=== PATIENT | female | born 1965 | race African-American/Black ===

== ENCOUNTER 2018-02-21 13:53 | Inpatient (IN) | payer SELFPAY ==
[2018-02-21] MEDS ORDERED: ASPIRIN 81 MG TABLET, CHEWABLE PO ONE (14:35)
--- NOTE | 2018-02-21 14:47 | ER Document Report ---
ED Cardiac - General Chief Complaint: Chest Pain Stated Complaint: CHEST PAIN Time Seen by Provider: 02/21/18 14:34 Mode of Arrival: Ambulatory Information source: Patient - HPI Patient complains to provider of: Chest pain, Shortness of breath Was the onset of pain: Gradual Is the pain a: New problem Chest pain location: Substernal Quality of pain: Moderate, Heaviness, Pressure Severity now: Moderate Severity at worst: Moderate Pain level currently: 3 Chest pain precipitating factors: Physical Exertion Cardiac risk factors: Diabetes, Hypertension, Dyslipidemia Associated symptoms: Fatigue, Shortness of breath Exacerbated by: Denies Relieved by: Nothing Similar symptoms previously: Yes Recently seen / treated by doctor: Yes Notes: Patient is a 52-year-old female presenting to the emergency room today complaining of chest pain and shortness of breath that has been worsening over the past few days, she recently took a road trip to [place], a few days after arriving there had similar symptoms and was hospitalized in [place], diagnosed with hypertension, congestive heart failure with an ejection fraction of 30% and high cholesterol, she stayed down there for approximately 30 days and drove back to [place] on February 03, she has been taking her medications without any difficulties and feeling okay up until about 4 or 5 days ago when her symptoms developed again, she has chest pressure, shortness of breath, palpitations with a racing heart, while in [place] she was told that she is "having too many PVCs" and was recommended to have an ablation but she thought she would return to [place] before scheduling this, she gets fatigued easily and has dyspnea on exertion, former social smoker, prior to taking her trip down to [place] she had no diagnosed medical problems - Related Data Allergies/Adverse Reactions: No Known Allergies Allergy (Unverified 02/21/18 15:09) Past Medical History - General Information source: Patient - Social History Smoking Status: Former Smoker Family History: Reviewed & Not Pertinent Review of Systems - Review of Systems Constitutional: Malaise EENT: No symptoms reported Cardiovascular: See HPI Respiratory: See HPI Gastrointestinal: No symptoms reported Genitourinary: No symptoms reported Female Genitourinary: No symptoms reported Musculoskeletal: No symptoms reported Skin: No symptoms reported Hematologic/Lymphatic: No symptoms reported Neurological/Psychological: No symptoms reported -: Yes All other systems reviewed and negative Physical Exam - Vital signs Vitals: Resp Pulse Ox 24 H 95 02/21/18 14:15 02/21/18 14:15 Interpretation: Hypertensive, Tachycardic - General General appearance: Appears well, Alert - HEENT Head: Normocephalic, Atraumatic Eyes: Normal Pupils: PERRL - Respiratory Respiratory status: No respiratory distress Chest status: Nontender Breath sounds: Normal Chest palpation: Normal - Cardiovascular Rhythm: Regular Heart sounds: Normal auscultation Murmur: No - Abdominal Inspection: Normal Distension: No distension Bowel sounds: Normal Tenderness: Nontender Organomegaly: No organomegaly - Back Back: Normal, Nontender - Extremities General upper extremity: Normal inspection, Nontender, Normal color, Normal ROM , Normal temperature General lower extremity: Normal inspection, Nontender, Normal color, Normal ROM , Normal temperature, Normal weight bearing. No: Marilee's sign - Neurological Neuro grossly intact: Yes Cognition: Normal Orientation: AAOx4 Teresa Coma Scale Eye Opening: Spontaneous Teresa Coma Scale Verbal: Oriented Teresa Coma Scale Motor: Obeys Commands Teresa Coma Scale Total: 15 Speech: Normal Motor strength normal: LUE, RUE, LLE, RLE Sensory: Normal - Psychological Associated symptoms: Normal affect, Normal mood - Skin Skin Temperature: Warm Skin Moisture: Dry Skin Color: Normal Course - Re-evaluation Re-evalutation: 02/21/18 20:46 Lab and imaging findings discussed with patient at bedside, consistent with congestive heart failure with pleural effusion, VQ scan shows no evidence of ventilation/perfusion mismatch, patient given a dose of Lasix in the emergency department and she has been on oxygen as well which she reports feeling much better with, admission was advised and patient is in agreement, patient discussed with hospitalist, Dr. Elliott who agrees to admit for further evaluation and treatment - Vital Signs Vital signs: Temp Pulse Resp BP Pulse Ox 22 H 191/142 H 95 02/21/18 20:01 02/21/18 20:00 02/21/18 20:01 - Laboratory Result Diagrams: 02/21/18 14:51 02/21/18 14:51 Laboratory results interpreted by me: 02/21/18 02/21/18 02/21/18 14:51 14:51 14:51 MCH 25.8 L RDW 19.6 H Glucose 186 H Magnesium NT-Pro-B Natriuret Pep 5140 H 02/21/18 14:51 MCH RDW Glucose Magnesium 1.4 L NT-Pro-B Natriuret Pep - Diagnostic Test Radiology reviewed: Image reviewed, Reports reviewed - EKG Interpretation by Me EKG shows normal: Sinus rhythm Rate: Tachycardia Voltage: Consistant with LVH Additional EKG results interpreted by me: 02/21/18 14:47 Ventricular bigeminy Discharge - Discharge Clinical Impression: CHF exacerbation Condition: Fair Disposition: ADMITTED INPATIENT Admitting Provider: Hospitalist Unit Admitted: Telemetry Referrals: QIANA PETTIT MD [ACTIVE STAFF] - Follow up as needed
[2018-02-21 15:14] LABS: ABSOLUTE BASOPHILS # (AUTO) 0.1 10^3/uL (0.0-0.2); ABSOLUTE LYMPHOCYTES (AUTO) 1.4 10^3/uL (0.5-4.7); ABSOLUTE MONOCYTES (AUTO) 0.4 10^3/uL (0.1-1.4); ABSOLUTE NEUT (AUTO) 4.9 10^3/uL (1.7-8.2); EOSINOPHILS % (AUTO) 0.6 % (0-6); HEMATOCRIT 39.7 % (36.0-47.0); HEMOGLOBIN 12.8 g/dL (12.0-15.5); LYMPHOCYTES % (AUTO) 20.4 % (13-45); MEAN CORPUSCULAR HEMOGLOBIN 25.8 pg (27.0-33.4); MEAN CORPUSCULAR HGB CONC 32.3 g/dL (32.0-36.0); MEAN CORPUSCULAR VOLUME 80 fl (80-97); MONOCYTES % (AUTO) 5.9 % (3-13); PLATELET COUNT 324 10^3/uL (150-450); RED BLOOD COUNT 4.97 10^6/uL (3.72-5.28); RED CELL DISTRIBUTION WIDTH 19.6 % (11.5-14.0); SEGMENTED NEUTROPHILS % (AUTO) 72.1 % (42-78); TOTAL CELLS COUNTED % (AUTO) 100 %; WHITE BLOOD COUNT 6.8 10^3/uL (4.0-10.5)
--- NOTE | 2018-02-21 15:15 | RADIOLOGY REPORT (SQ) ---
EXAM DESCRIPTION: CHEST SINGLE VIEW COMPLETED DATE/TIME: 02/21/2018 3:07 pm REASON FOR STUDY: cp COMPARISON: None. EXAM PARAMETERS: NUMBER OF VIEWS: One view. TECHNIQUE: Single frontal radiographic view of the chest acquired. RADIATION DOSE: NA LIMITATIONS: None. FINDINGS: LUNGS AND PLEURA: Left lower lobe density with pleural effusion. Right lung clear. MEDIASTINUM AND HILAR STRUCTURES: No masses. Contour normal. HEART AND VASCULAR STRUCTURES: Mild cardiomegaly. BONES: No acute findings. HARDWARE: None in the chest. OTHER: No other significant finding. IMPRESSION: LEFT PLEURAL EFFUSION WITH LEFT LOWER LOBE ATELECTASIS AND/OR INFILTRATE. TECHNICAL DOCUMENTATION: JOB ID: [id number] [employer]- All Rights Reserved Reading location - IP/workstation name: [email or web address]
[2018-02-21 15:34] LABS: ALANINE AMINOTRANSFERASE 30 U/L (9-52); ALBUMIN 3.8 g/dL (3.5-5.0); ALKALINE PHOSPHATASE 97 U/L (38-126); ANION GAP 15 (5-19); ASPARTATE AMINO TRANSFERASE 22 U/L (14-36); BILIRUBIN,DIRECT 0.3 mg/dL (0.0-0.4); BILIRUBIN,TOTAL 0.7 mg/dL (0.2-1.3); BLOOD UREA NITROGEN 16 mg/dL (7-20); CALCIUM 9.8 mg/dL (8.4-10.2); CARBON DIOXIDE 25 mmol/L (22-30); CHLORIDE 100 mmol/L (98-107); CREATINE KINASE 52 U/L (30-135); GLUCOSE 186 mg/dL (75-110); POTASSIUM 4.2 mmol/L (3.6-5.0); SODIUM 140.1 mmol/L (137-145); TOTAL PROTEIN 7.3 g/dL (6.3-8.2)
[2018-02-21 15:46] LABS: CREATINE KINASE MB 1.13 ng/mL (<4.55)
[2018-02-21 15:49] LABS: TROPONIN I 0.064 ng/mL
[2018-02-21] MEDS: MAGNESIUM SULFATE/D5W 1 GM/100 ML RTUPB IV SCH ×2 (19:49→21:09)
--- NOTE | 2018-02-21 20:07 | RADIOLOGY REPORT (SQ) ---
EXAM DESCRIPTION: NM LUNG VENT/PERF SCAN COMPLETED DATE/TIME: 02/21/2018 7:53 pm REASON FOR STUDY: sob COMPARISON: Earlier radiograph RADIONUCLIDE AND DOSE: 4.89 millicuries TC-99m MAA Intravenous 32.2 millicuries TC-99m DTPA Inhaled aerosol TECHNIQUE: Eight views of the lungs acquired post ventilation of DTPA aerosol. Eight matching views of the lungs acquired following injection of MAA. LIMITATIONS: None. FINDINGS: VENTILATION: Centralized heterogeneous distribution of DTPA aerosol during ventilatory pha se. Left basilar areas of photopenia. PERFUSION: Left basilar areas of photopenia.Perfusion images otherwise show normal homogenous activit y. No ventilation-perfusion mismatches. OTHER: No other significant finding. IMPRESSION: Left basilar areas of photopenia consistent with the airspace disease-effusion seen on r adiograph. No ventilation-perfusion mismatches. TECHNICAL DOCUMENTATION: JOB ID: [id number] [place]-72 2010 [employer]- All Rights Reserved Reading location - IP/workstation name: [email or web address]
[2018-02-21] MEDS ORDERED: FUROSEMIDE INJ/PF 40 MG/4 ML SDV IV ONE ×2 (20:17→23:15)
[2018-02-21] MEDS ORDERED: PROMETHAZINE HCL INJ 25 MG/1 ML VIAL IV PRN (22:34)
[2018-02-21] MEDS ORDERED: MAG HYDROX/AL HYDROX/SIMETH SUSP 30 ML UDCUP PO PRN (22:34)
[2018-02-21] MEDS ORDERED: GLUCAGON,HUMAN RECOMB 1 MG INJ IM PRN (22:44)
[2018-02-21] MEDS ORDERED: DEXTROSE 50%-WATER 25 GM/50 ML DISP.SYRIN IV PRN ×2 (22:44)
[2018-02-21] MEDS ORDERED: DEXTROSE 40% GEL 15 GM TUBE PO PRN ×2 (22:44)
[2018-02-21] MEDS ORDERED: CARVEDILOL 12.5 MG TABLET PO ONE ×2 (23:00→23:30)
--- NOTE | 2018-02-21 23:19 | PDOC H&P ---
History of Present Illness Admission Date/PCP: 02/21/18 20:52 None Patient complains of: SOB History of Present Illness: TAMAR ESCOBAR is a 52 year old female sent into the emergency department planing of progressive shortness of breath. On December patient was on vacation in [place], he started feeling sick, she thought was anxiety and she ended up hospitalized about 30 days, came back 01/29. She was diagnosed with diabetes mellitus type 2, hypertension and coronary arterial disease with CHF and ejection fraction of 30%. Medications were given to her and advised her to have a primary care physician here to follow up, her son got sick and she did not get to have any appointment with any primary care. About a week ago her symptoms started again with generalized weakness, progressive shortness of breath, pleuritic chest pain, generalized weakness, she had to frequently stop to breathe, her son was discharged today and she started to come to the emergency department. Denies any lower extremities edema or gain weight. She is very compliant with her medications. In [place], was telling she has too many PVC's and was recommended to have an ablation but she felt [facility] could [facility]. In the ED CTA could not be done as she has very small veins but a VQ scan was negative for PE. 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 In the ED given IV lasix. EKG shows sinus tachycardia with LVH. She was hypertensive with a blood pressure 191/142 initially. Troponins elevation 0.06. Chest x-ray shows left pleural effusion, BNP 5140. Past Medical History Cardiac Medical History: Reports: Congestive Heart Failure - EF 30%, Hypertension Endocrine Medical History: Reports: Diabetes Mellitus Type 2 Past Surgical History Past Surgical History: Reports: None Social History Smoking Status: Former Smoker - Social a smoker, quit 2 years ago Frequency of Alcohol Use: None Drugs: None Past Social History Note: Lives with her daughter, 2 grandkids and her son. Family History Family History: Reviewed & Not Pertinent Family History: Father 74 years old with diabetes mellitus, hypertension, lung cancer in remission. Mother 74 years old with hypertension Parental Family History Reviewed: Yes - As above Children Family History Reviewed: NA Sibling(s) Family History Reviewed.: NA Medication/Allergy Home Medications: Atorvastatin Calcium [Lipitor] 80 mg PO QHS 02/21/18 Glipizide 5 mg PO BID 02/21/18 Metformin HCl [Glucophage 500 mg Tablet] 500 mg PO BID 02/21/18 Sacubitril/Valsartan [Entresto 49 mg-51 mg Tablet] 1 each PO DAILY 02/21/18 Allergies/Adverse Reactions: No Known Allergies Allergy (Unverified 02/21/18 15:09) Review of Systems Review of Systems: As outlined above, others negative Physical Exam Vital Signs: Temp Pulse Resp BP Pulse Ox 19 197/101 H 98 02/21/18 22:01 02/21/18 22:01 02/21/18 22:01 Additional comments: General appearance: Well-developed, well-nourished, alert and cooperative, and appears to be in no acute distress Head: Normocephalic Eyes: PEERL, EOMI, vision is grossly intact. Ears: External auditory canal and tympanic membranes clear, hearing grossly intact. Nose: No nasal discharge. Throat: Oral cavity and pharynx normal. No inflammation, swelling, exudate or lesions. Neck: Neck supple, nontender without lymphadenopathy, masses or thyromegaly. Cardiac: Normal S1 and S2. No S3, S4 or murmurs. Rhythm is regular. There is no peripheral edema, cyanosis or pallor. Extremities are warm and well perfused. Capillary refill is less than 2 seconds. No carotid bruits. Lungs: 2/3 inferior crackles in left lung, no rhonchi, wheezing or diminished breath sounds. Not using accessory muscles. Abdomen: Positive bowel sounds. Soft. Nondistended, nontender. No guarding or rebound. No masses. No hepatosplenomegaly Extremities: No significant deformity or joint abnormality. No edema. Peripheral pulses intact. No varicosities. Neurological: Cranial nerves II through XII grossly intact. Strength and sensation symmetric and intact throughout. Reflexes 2+ throughout. Skin: Skin normal color, texture and turgor with no lesions or eruptions, warm and dry. Psychiatric: The mental examination revealed the patient was oriented to person , place, and time. The patient was able to demonstrate good judgment on recent , without hallucinations, abnormal affect or abnormal behaviors. Results Laboratory Results: 02/21/18 02/21/18 02/21/18 14:51 14:51 14:51 WBC 6.8 RBC 4.97 Hgb 12.8 Hct 39.7 MCV 80 MCH 25.8 L MCHC 32.3 RDW 19.6 H Plt Count 324 Seg Neutrophils % 72.1 Lymphocytes % 20.4 Monocytes % 5.9 Eosinophils % 0.6 Basophils % 1.0 Absolute Neutrophils 4.9 Absolute Lymphocytes 1.4 Absolute Monocytes 0.4 Absolute Eosinophils 0.0 Absolute Basophils 0.1 Sodium 140.1 Potassium 4.2 Chloride 100 Anion Gap 15 BUN 16 Creatinine 0.65 Est GFR ( Amer) > 60 Est GFR (Non-Af Amer) > 60 Glucose 186 H Calcium 9.8 Magnesium Total Bilirubin 0.7 Direct Bilirubin 0.3 AST 22 ALT 30 Alkaline Phosphatase 97 Creatine Kinase 52 CK-MB (CK-2) 1.13 Troponin I 0.064 Total Protein 7.3 Albumin 3.8 TSH 02/21/18 02/21/18 02/21/18 14:51 14:51 20:15 WBC RBC Hgb Hct MCV MCH MCHC RDW Plt Count Seg Neutrophils % Lymphocytes % Monocytes % Eosinophils % Basophils % Absolute Neutrophils Absolute Lymphocytes Absolute Monocytes Absolute Eosinophils Absolute Basophils Sodium Potassium Chloride Anion Gap BUN Creatinine Est GFR ( Amer) Est GFR (Non-Af Amer) Glucose Calcium Magnesium 1.4 L Total Bilirubin Direct Bilirubin AST ALT Alkaline Phosphatase Creatine Kinase CK-MB (CK-2) Troponin I 0.079 Total Protein Albumin TSH 2.48 Impressions: Chest X-Ray 02/21/18 14:36 IMPRESSION: LEFT PLEURAL EFFUSION WITH LEFT LOWER LOBE ATELECTASIS AND/OR INFILTRATE. Lung Scan-VQ NM 02/21/18 18:14 IMPRESSION: Left basilar areas of photopenia consistent with the airspace disease-effusion seen on radiograph. No ventilation-perfusion mismatches. Assessment & Plan - Diagnosis (1) Acute on chronic systolic (congestive) heart failure Is this a current diagnosis for this admission?: Yes Plan: Patient recently diagnosed with congestive heart failure, systolic with an ejection fraction of 30%, unknown if diastolic. Patient was no discharge with Lasix from the hospital in [place], [place]. Will place the patient under telemetry monitoring, Lasix 40 mg IV every 12 hours, I will repeat the echocardiogram to make sure the patient does not have any worsening cardiac function as she has been complaint her medications. Patient has been dieting and having some fluid restriction. I will initiate the patient on Coreg as is unknown why it was discontinued. Cardiac markers 3. Cardiology evaluation. (2) Diabetes mellitus type 2 in nonobese Is this a current diagnosis for this admission?: Yes Plan: Metformin on hold, we can continue her glipizide. Accu-Cheks q. before meals and at bedtime, insulin lispro sliding scale, hypoglycemia protocol. Hemoglobin A1c in the morning. (3) Hypertension Qualifiers: Hypertension type: essential hypertension Qualified Code(s): I10 - Essential (primary) hypertension Is this a current diagnosis for this admission?: Yes Plan: Please see him and tries to, added Coreg. Labetalol IV as needed (4) Hypertensive emergency Is this a current diagnosis for this admission?: Yes Plan: This is multifactorial, and probably her antihypertensive medication has not been correctly adjusted that she did not receive any PCP here. I will continue with her home Entresto and as I said before I added Coreg, IV lopressor as needed. (5) Hypomagnesemia Is this a current diagnosis for this admission?: Yes Plan: Replacement given in the ED. (6) Elevated troponin Is this a current diagnosis for this admission?: Yes Plan: Minimally elevated as 0.06 and 0.079, likely secondary to her hypertensive emergency. Cardiac markers 3 place. - Time Time Spent: 30 to 50 Minutes - Inpatient Certification Based on my medical assessment, after consideration of the patient's comorbidities, presenting symptoms, or acuity I expect that the services needed warrant INPATIENT care.: Yes I certify that my determination is in accordance with my understanding of Medicare's requirements for reasonable and necessary INPATIENT services [42 CFR 412.3e].: Yes Medical Necessity: Risk of Complication if Not Cared For in Hospital
[2018-02-21] MEDS ORDERED: LABETALOL HCL INJ 20 MG/4 ML DISP.SYRIN IV PRN (23:20)
[2018-02-21 23:47] LABS: APPEARANCE,URINE SLIGHTLY-CLOUDY; BILIRUBIN,URINE NEGATIVE (NEGATIVE); COLOR,URINE YELLOW; GLUCOSE, URINE NEGATIVE (NEGATIVE); KETONES,URINE NEGATIVE (NEGATIVE); LEUKOCYTE ESTERASE,URINE NEGATIVE (NEGATIVE); NITRITE,URINE NEGATIVE (NEGATIVE); PROTEIN,URINE 100 mg/dL (NEGATIVE); URINE SPECIFIC GRAVITY 1.014; UROBILINOGEN,URINE NEGATIVE mg/dL (<2.0)
[2018-02-22 00:08] LABS: URINE AMPHETAMINES SCREEN NEGATIVE; URINE BARBITURATES SCREEN NEGATIVE; URINE BENZODIAZEPINES SCREEN NEGATIVE; URINE COCAINE SCREEN NEGATIVE; URINE MARIJUANA (THC) SCREEN NEGATIVE; URINE METHADONE SCREEN NEGATIVE; URINE PHENCYCLIDINE SCREEN NEGATIVE
[2018-02-22 04:46] LABS: ABSOLUTE BASOPHILS # (AUTO) 0.1 10^3/uL (0.0-0.2); ABSOLUTE EOSINOPHILS # (AUTO) 0.1 10^3/uL (0.0-0.6); ABSOLUTE LYMPHOCYTES (AUTO) 1.3 10^3/uL (0.5-4.7); ABSOLUTE MONOCYTES (AUTO) 0.4 10^3/uL (0.1-1.4); ABSOLUTE NEUT (AUTO) 4.3 10^3/uL (1.7-8.2); HEMATOCRIT 36.6 % (36.0-47.0); HEMOGLOBIN 11.7 g/dL (12.0-15.5); LYMPHOCYTES % (AUTO) 21.3 % (13-45); MEAN CORPUSCULAR HEMOGLOBIN 25.6 pg (27.0-33.4); MEAN CORPUSCULAR VOLUME 80 fl (80-97); MONOCYTES % (AUTO) 5.7 % (3-13); PLATELET COUNT 277 10^3/uL (150-450); RED BLOOD COUNT 4.58 10^6/uL (3.72-5.28); RED CELL DISTRIBUTION WIDTH 19.5 % (11.5-14.0); TOTAL CELLS COUNTED % (AUTO) 100 %; WHITE BLOOD COUNT 6.2 10^3/uL (4.0-10.5)
[2018-02-22] MEDS: ACETAMINOPHEN 325 MG TABLET PO PRN ×4 (05:23→20:36)
[2018-02-22 06:34] LABS: ANION GAP 12 (5-19); BLOOD UREA NITROGEN 15 mg/dL (7-20); CARBON DIOXIDE 26 mmol/L (22-30); CHLORIDE 102 mmol/L (98-107); CHOLESTEROL 90.86 mg/dL (0-200); GLUCOSE 182 mg/dL (75-110); PHOSPHORUS 4.9 mg/dL (2.5-4.5); POTASSIUM 3.8 mmol/L (3.6-5.0); SODIUM 140.1 mmol/L (137-145); TRIGLYCERIDES 123 mg/dL (<150)
[2018-02-22 06:45] LABS: DIRECT LDL 43 mg/dL (<100)
--- NOTE | 2018-02-22 07:43 | EKG REPORT ---
SEVERITY:- ABNORMAL ECG - SINUS TACHYCARDIA VENTRICULAR BIGEMINY LEFT ATRIAL ABNORMALITY LVH WITH SECONDARY REPOLARIZATION ABNORMALITY : Confirmed by: Marv Petit MD 22-Feb-2018 07:42:37
[2018-02-22] MEDS: GLIPIZIDE 5 MG TABLET PO SCH ×2 (09:31→17:17)
[2018-02-22] MEDS: FUROSEMIDE INJ/PF 40 MG/4 ML SDV IV SCH ×2 (09:31→21:35)
[2018-02-22] MEDS: CARVEDILOL 12.5 MG TABLET PO SCH ×2 (09:32→21:34)
[2018-02-22] MEDS: ENOXAPARIN SODIUM INJ 40 MG/0.4 ML DISP.SYRIN SUBCUT SCH (09:32)
[2018-02-22] MEDS ORDERED: SACUBITRIL/VALSARTAN 49 MG/51 MG TABLET PO SCH (10:00)
[2018-02-22] MEDS: INSULIN LISPRO 100 UNIT/ML 3 ML VIAL SUBCUT PRN ×2 (12:03→16:35)
--- NOTE | 2018-02-22 18:48 | XCELERA REPORT ---
[address] [address] Transthoracic Echocardiogram Report Name: TAMAR ESCOBAR Age: 52 yrs Gender: Female : 1965 Patient Status: Inpatient Patient Location: [address] [place] [address] Study Date: 02/22/2018 02:46 PM Procedure: A complete two-dimensional transthoracic echocardiogram was performed (2D, M-mode, spectral and color flow Doppler). The study was technically adequate with some images being suboptimal in quality. Reason For Study: worsening chf symptoms Ordering Physician: GERMAINE VU Performed By: Leslie Shelton Interpretation Summary The Ejection Fraction estimate is 20-25% Left ventricular systolic function is severely reduced. There is mild to moderate concentric left ventricular hypertrophy. The left ventricle is mildly dilated. LV diastolic function could not be adequately assessed due to significant valve regurgitation and/or stenosis. There is severe global hypokinesis of the left ventricle. The right ventricle is mildly dilated. The right ventricular systolic function is moderately reduced. The left atrium is moderately dilated. The right atrium is moderately dilated. There is a moderate amount of mitral regurgitation There is no mitral valve stenosis. There is no aortic valve stenosis No aortic regurgitation is present. There is a moderate amount of tricuspid regurgitation There is mild pulmonary hypertension by echo Right ventricular systolic pressure is estimated to be elevated at 30-40mmHg. The aortic root is not well visualized but is probably normal size. The inferior vena cava was not well visualized There is no pericardial effusion. MMode/2D Measurements & Calculations RVDd: 3.7 cm LVIDd: 6.6 cm FS: 6.2 % Ao root diam: 3.0 cm IVSd: 1.3 cm LVIDs: 6.1 cm EDV(Teich): 220.2 ml Ao root area: 7.2 cm2 LVPWd: 1.1 cm ESV(Teich): 190.4 ml EF(Teich): 13.5 % LVOT diam: 1.8 cm LVOT area: 2.5 cm2 Doppler Measurements & Calculations MV E max jeanie: MV dec slope: Ao V2 max: LV V1 max P.0 cm/sec 132.9 cm/sec 4.1 mmHg MV A max jeanie: 787.6 cm/sec2 Ao max PG: LV V1 max: 52.6 cm/sec MV dec time: 7.1 mmHg 101.3 cm/sec MV E/A: 1.9 0.13 sec GANESH(V,D): 1.9 cm2 PA V2 max: PI max jeanie: TR max jeanie: 81.9 cm/sec 145.5 cm/sec 267.7 cm/sec PA max P.7 mmHg PI max P.5 mmHg TR max PG: PI dec slope: 28.7 mmHg 86.5 cm/sec2 Left Ventricle The left ventricle is mildly dilated. There is mild to moderate concentric left ventricular hypertrophy. The Ejection Fraction estimate is 20-25%. Left ventricular systolic function is severely reduced. LV diastolic function could not be adequately assessed due to significant valve regurgitation and/or stenosis. There is severe global hypokinesis of the left ventricle. Right Ventricle The right ventricle is mildly dilated. There is normal right ventricular wall thickness. The right ventricular systolic function is moderately reduced. Atria The right atrium is moderately dilated. The left atrium is moderately dilated. Interarterial septum not well visualized and not well dopplered. Cannot comment on ASD/PFO presence. Mitral Valve The mitral valve leaflets are sclerotic, but show no functional abnormalities. There is no mitral valve stenosis. There is a moderate amount of mitral regurgitation. Aortic Valve The aortic valve is grossly normal. There is no aortic valve stenosis. No aortic regurgitation is present. Tricuspid Valve The tricuspid valve is not well visualized, but is grossly normal. There is no tricuspid stenosis. There is a moderate amount of tricuspid regurgitation. There is mild pulmonary hypertension by echo. Right ventricular systolic pressure is estimated to be elevated at 30-40mmHg. Pulmonic Valve The pulmonic valve is not well visualized. Great Vessels The aortic root is not well visualized but is probably normal size. The inferior vena cava was not well visualized. Effusions There is no pericardial effusion. : GERMAINE VU > [facility]
[2018-02-22] MEDS: ATORVASTATIN CALCIUM 80 MG TABLET PO SCH (21:35)
--- NOTE | 2018-02-22 22:36 | PDOC PROGRESS REPORT ---
Subjective Progress Note for:: 02/22/18 Subjective:: still c/o of HERNANDEZ o/w feeling better. Denies any fever, chills, n/v/d, cp or any urinary symptoms. Reason For Visit: ACUTE ON CHRONIC CHF EXACERBATION Physical Exam Vital Signs: Temp Pulse Resp BP Pulse Ox 98.5 F 37 L 18 140/80 H 96 02/22/18 15:43 02/22/18 15:44 02/22/18 15:44 02/22/18 16:45 02/22/18 15:44 Intake & Output 02/21/18 02/22/18 02/23/18 06:59 06:59 06:59 Intake Total 100 266 Balance 100 266 General appearance: PRESENT: no acute distress, well-developed, well-nourished Head exam: PRESENT: atraumatic, normocephalic Eye exam: PRESENT: conjunctiva pink, EOMI, PERRLA. ABSENT: scleral icterus Ear exam: PRESENT: normal external ear exam Mouth exam: PRESENT: moist, tongue midline Neck exam: ABSENT: carotid bruit, JVD, lymphadenopathy, thyromegaly Respiratory exam: PRESENT: crackles, other - bibasilar crackles. ABSENT: rales , rhonchi, wheezes Cardiovascular exam: PRESENT: RRR. ABSENT: diastolic murmur, rubs, systolic murmur Pulses: PRESENT: normal dorsalis pedis pul Vascular exam: PRESENT: normal capillary refill GI/Abdominal exam: PRESENT: normal bowel sounds, soft. ABSENT: distended, guarding, mass, organolmegaly, rebound, tenderness Rectal exam: PRESENT: deferred Extremities exam: PRESENT: full ROM, +1 edema - BLE. ABSENT: calf tenderness, clubbing, pedal edema Neurological exam: PRESENT: alert, awake, oriented to person, oriented to place , oriented to time, oriented to situation, CN II-XII grossly intact. ABSENT: motor sensory deficit Psychiatric exam: PRESENT: appropriate affect, normal mood. ABSENT: homicidal ideation, suicidal ideation Skin exam: PRESENT: dry, intact, warm. ABSENT: cyanosis, rash Results Laboratory Results: 02/22/18 04:37 02/22/18 04:37 02/21/18 02/22/18 02/22/18 23:15 04:37 04:37 WBC 6.2 RBC 4.58 Hgb 11.7 L Hct 36.6 MCV 80 MCH 25.6 L MCHC 32.0 RDW 19.5 H Plt Count 277 Seg Neutrophils % 70.0 Lymphocytes % 21.3 Monocytes % 5.7 Eosinophils % 2.0 Basophils % 1.0 Absolute Neutrophils 4.3 Absolute Lymphocytes 1.3 Absolute Monocytes 0.4 Absolute Eosinophils 0.1 Absolute Basophils 0.1 Sodium 140.1 Potassium 3.8 Chloride 102 Carbon Dioxide 26 Anion Gap 12 BUN 15 Creatinine 0.70 Est GFR ( Amer) > 60 Est GFR (Non-Af Amer) > 60 Glucose 182 H Calcium 9.0 Phosphorus 4.9 H Magnesium 1.7 Triglycerides 123 Cholesterol 90.86 LDL Cholesterol Direct 43 VLDL Cholesterol 25.0 HDL Cholesterol 28 L Urine Color YELLOW Urine Appearance SLIGHTLY-CLOUDY Urine pH 7.0 Ur Specific [place] 1.014 Urine Protein 100 H Urine Glucose (UA) NEGATIVE Urine Ketones NEGATIVE Urine Blood NEGATIVE Urine Nitrite NEGATIVE Ur Leukocyte Esterase NEGATIVE Urine WBC (Auto) 1 Urine RBC (Auto) 1 02/21/18 02/22/18 02/22/18 22:55 04:37 10:44 Troponin I 0.082 0.082 0.063 Impressions: Chest X-Ray 02/21/18 14:36 IMPRESSION: LEFT PLEURAL EFFUSION WITH LEFT LOWER LOBE ATELECTASIS AND/OR INFILTRATE. Lung Scan-VQ NM 02/21/18 18:14 IMPRESSION: Left basilar areas of photopenia consistent with the airspace disease-effusion seen on radiograph. No ventilation-perfusion mismatches. Assessment & Plan - Diagnosis (1) Acute on chronic systolic (congestive) heart failure Is this a current diagnosis for this admission?: Yes Plan: Recently diagnosed with congestive heart failure, in patient 2D echo shows EF 20 -25, severe LVSF. Denies any history of CAD. Continue telemetry monitoring, Lasix 40 mg IV every 12 hour. Cardiac diet and fluid restriction. Continue WILLIAMS, Coreg. Adjust meds guided by hydrodynamic status. Cardiology Evaluation. (2) CHF exacerbation Qualifiers: Heart failure type: systolic Qualified Code(s): I50.23 - Acute on chronic systolic (congestive) heart failure Is this a current diagnosis for this admission?: Yes Plan: Monitor volume status, continue diuretic. Cardiac diet. (3) Diabetes mellitus type 2 in nonobese Is this a current diagnosis for this admission?: Yes Plan: Hold oral hypoglycemics. Continue Accu-Cheks,sliding scale, hypoglycemia protocol. Hemoglobin A1c 7.4% (4) Elevated troponin Is this a current diagnosis for this admission?: Yes Plan: Minimally elevated as 0.06 and 0.079, likely secondary to her hypertensive emergency. f/u Cardiology Recs. If active chest pain or signs of NV, please do a complete NV w/u (5) Hypertension Qualifiers: Hypertension type: essential hypertension Qualified Code(s): I10 - Essential (primary) hypertension Is this a current diagnosis for this admission?: Yes Plan: on BB, Entresto, Lasix. Adjsut meds as needed. (6) Hypomagnesemia Is this a current diagnosis for this admission?: Yes Plan: Replace as needed.
[2018-02-22 23:32] LABS: CREATINE KINASE MB 0.88 ng/mL (<4.55)
[2018-02-22 23:35] LABS: TROPONIN I 0.048 ng/mL
[2018-02-23] MEDS: ACETAMINOPHEN 325 MG TABLET PO PRN (01:40)
[2018-02-23 05:11] LABS: ABSOLUTE EOSINOPHILS # (AUTO) 0.2 10^3/uL (0.0-0.6); ABSOLUTE LYMPHOCYTES (AUTO) 1.1 10^3/uL (0.5-4.7); ABSOLUTE MONOCYTES (AUTO) 0.4 10^3/uL (0.1-1.4); ABSOLUTE NEUT (AUTO) 3.3 10^3/uL (1.7-8.2); BASOPHILS % (AUTO) 0.8 % (0-2); EOSINOPHILS % (AUTO) 4.1 % (0-6); HEMATOCRIT 36.3 % (36.0-47.0); HEMOGLOBIN 11.4 g/dL (12.0-15.5); LYMPHOCYTES % (AUTO) 21.9 % (13-45); MEAN CORPUSCULAR HEMOGLOBIN 25.3 pg (27.0-33.4); MEAN CORPUSCULAR HGB CONC 31.6 g/dL (32.0-36.0); MEAN CORPUSCULAR VOLUME 80 fl (80-97); PLATELET COUNT 264 10^3/uL (150-450); RED BLOOD COUNT 4.53 10^6/uL (3.72-5.28); RED CELL DISTRIBUTION WIDTH 19.3 % (11.5-14.0); SEGMENTED NEUTROPHILS % (AUTO) 65.2 % (42-78); TOTAL CELLS COUNTED % (AUTO) 100 %
[2018-02-23 05:33] LABS: ALANINE AMINOTRANSFERASE 33 U/L (9-52); ALBUMIN 3.1 g/dL (3.5-5.0); ALKALINE PHOSPHATASE 85 U/L (38-126); ANION GAP 13 (5-19); ASPARTATE AMINO TRANSFERASE 24 U/L (14-36); BILIRUBIN,DIRECT 0.3 mg/dL (0.0-0.4); BILIRUBIN,TOTAL 0.3 mg/dL (0.2-1.3); BLOOD UREA NITROGEN 22 mg/dL (7-20); CALCIUM 8.4 mg/dL (8.4-10.2); CARBON DIOXIDE 29 mmol/L (22-30); CHLORIDE 100 mmol/L (98-107); CREATINE KINASE 43 U/L (30-135); GLUCOSE 184 mg/dL (75-110); POTASSIUM 3.4 mmol/L (3.6-5.0); SODIUM 141.8 mmol/L (137-145); TOTAL PROTEIN 6.1 g/dL (6.3-8.2)
[2018-02-23 05:42] LABS: CREATINE KINASE MB 0.9 ng/mL (<4.55); TROPONIN I 0.052 ng/mL
[2018-02-23] MEDS: FUROSEMIDE INJ/PF 40 MG/4 ML SDV IV SCH ×2 (11:13→21:07)
[2018-02-23] MEDS: CARVEDILOL 12.5 MG TABLET PO SCH ×2 (11:13→21:06)
[2018-02-23] MEDS: INSULIN LISPRO 100 UNIT/ML 3 ML VIAL SUBCUT PRN ×2 (11:15→17:48)
[2018-02-23] MEDS: ENOXAPARIN SODIUM INJ 40 MG/0.4 ML DISP.SYRIN SUBCUT SCH (11:15)
[2018-02-23] MEDS: SACUBITRIL/VALSARTAN 49 MG/51 MG TABLET PO SCH ×2 (11:18→21:07)
--- NOTE | 2018-02-23 11:19 | PDOC CONSULTATION ---
Consultation Consult Date: 02/22/18 Attending physician:: GERMAINE VU Consult reason:: CHF History of Present Illness Admission Date/PCP: 02/21/18 20:52 Patient complains of: Shortness of breath History of Present Illness: TAMAR ESCOBAR is a 52 year old female sent into the emergency department complaining of progressive shortness of breath. On December patient was on vacation in [place], he started feeling sick, she thought was anxiety and she ended up hospitalized about 30 days, came back 01/29. She was diagnosed with diabetes mellitus type 2, hypertension and coronary arterial disease with CHF and ejection fraction of 30%. Medications were given to her and advised her to have a primary care physician here to follow up, her son got sick and she did not get to have any appointment with any primary care. About a week ago her symptoms started again with generalized weakness, progressive shortness of breath, pleuritic chest pain, generalized weakness, she had to frequently stop to breathe, her son was discharged today and she started to come to the emergency department. Denies any lower extremities edema or gain weight. She is very compliant with her medications. In [place], was telling she has too many PVC's and was recommended to have an ablation but she felt she could do it in [place]. In the ED CTA could not be done as she has very small veins but a VQ scan was negative for PE. 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 In the ED given IV lasix. EKG shows sinus tachycardia with LVH. She was hypertensive with a blood pressure 191/142 initially. Troponins elevation 0.06. Chest x-ray shows left pleural effusion, BNP 5140. Past Medical History Cardiac Medical History: Reports: Congestive Heart Failure - EF 30%, Hypertension Endocrine Medical History: Reports: Diabetes Mellitus Type 2 Past Surgical History Past Surgical History: Reports: None Social History Smoking Status: Former Smoker Number of Years Smokin Frequency of Alcohol Use: None Hx Recreational Drug Use: No Drugs: None Hx Prescription Drug Abuse: No - Advance Directive Resuscitation Status: Full Code Family History Family History: Hypertension Parental Family History Reviewed: Yes Children Family History Reviewed: Yes Sibling(s) Family History Reviewed.: Yes Medication/Allergy Home Medications: Atorvastatin Calcium [Lipitor] 80 mg PO QHS 02/21/18 Glipizide 5 mg PO Q12 02/21/18 Metformin HCl [Glucophage 500 mg Tablet] 500 mg PO Q12 02/21/18 Sacubitril/Valsartan [Entresto 49 mg-51 mg Tablet] 1 each PO DAILY 02/21/18 Aspirin [Aspirin EC] 81 mg PO DAILY 02/22/18 Carvedilol [Coreg 3.125 mg Tablet] 3.125 mg PO Q12 02/22/18 Allergies/Adverse Reactions: No Known Allergies Allergy (Unverified 02/21/18 15:09) Physical Exam Vital Signs: Temp Pulse Resp BP Pulse Ox 97.6 F 50 L 20 149/85 H 97 02/22/18 08:50 02/22/18 08:50 02/22/18 08:50 02/22/18 08:50 02/22/18 08:50 Intake & Output 02/21/18 02/22/18 02/23/18 06:59 06:59 06:59 Intake Total 100 Balance 100 Exam: GENERAL: well-nourished and in no acute distress. Alert and oriented x3 HEAD: Atraumatic, normocephalic. EYES: Pupils equal round and reactive to light, extraocular movements intact, sclera anicteric, conjunctiva are normal. ENT: TMs normal, nares patent, oropharynx clear without exudates. Moist mucous membranes. No oral ulcerations or bleeding gums noted NECK: supple without lymphadenopathy. Trachea is central. No cervical or axillary lymphadenopathy noted. Carotids are 2+, JVD 10-12 cm LUNGS: Respiration seems nonlabored, no significant accessory muscle action noted. Bibasilar fine crackles are noted. No wheezes rales or rhonchi noted. Mild bilateral basal dullness noted on percussion. CHEST: Palpation of the chest wall shows no significant chest wall tenderness. 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 ABDOMEN: Soft, no significant tenderness appreciated, normoactive bowel sounds. No guarding, no rebound. No rigidity noted . No masses appreciated. EXTREMITIES: Pedal pulses are 1-2+, no calf tenderness noted. No clubbing or cyanosis. 1-2+ pedal edema noted NEUROLOGICAL: Focused neurological exam showed no significant neurologic deficit. Normal speech, no focal weakness appreciated. PSYCH: Normal mood, normal affect. Judgment and insight within normal limits. SKIN: No significant ecchymosis, skin is noted to be warm. MUSCULOSKELETAL EXAM: No significant acute joint swelling noted. Results Laboratory Results: 02/22/18 04:37 02/22/18 04:37 02/21/18 02/22/18 02/22/18 23:15 04:37 04:37 WBC 6.2 RBC 4.58 Hgb 11.7 L Hct 36.6 MCV 80 MCH 25.6 L MCHC 32.0 RDW 19.5 H Plt Count 277 Seg Neutrophils % 70.0 Lymphocytes % 21.3 Monocytes % 5.7 Eosinophils % 2.0 Basophils % 1.0 Absolute Neutrophils 4.3 Absolute Lymphocytes 1.3 Absolute Monocytes 0.4 Absolute Eosinophils 0.1 Absolute Basophils 0.1 Sodium 140.1 Potassium 3.8 Chloride 102 Carbon Dioxide 26 Anion Gap 12 BUN 15 Creatinine 0.70 Est GFR ( Amer) > 60 Est GFR (Non-Af Amer) > 60 Glucose 182 H Calcium 9.0 Phosphorus 4.9 H Magnesium 1.7 Triglycerides 123 Cholesterol 90.86 LDL Cholesterol Direct 43 VLDL Cholesterol 25.0 HDL Cholesterol 28 L Urine Color YELLOW Urine Appearance SLIGHTLY-CLOUDY Urine pH 7.0 Ur Specific [place] 1.014 Urine Protein 100 H Urine Glucose (UA) NEGATIVE Urine Ketones NEGATIVE Urine Blood NEGATIVE Urine Nitrite NEGATIVE Ur Leukocyte Esterase NEGATIVE Urine WBC (Auto) 1 Urine RBC (Auto) 1 02/21/18 02/22/18 22:55 04:37 Troponin I 0.082 0.082 EKG Comments: Sinus tachycardia, frequent PVCs noted. Nonspecific ST-T wave changes are noted Impressions: Chest X-Ray 02/21/18 14:36 IMPRESSION: LEFT PLEURAL EFFUSION WITH LEFT LOWER LOBE ATELECTASIS AND/OR INFILTRATE. Lung Scan-VQ NM 02/21/18 18:14 IMPRESSION: Left basilar areas of photopenia consistent with the airspace disease-effusion seen on radiograph. No ventilation-perfusion mismatches. Assessment & Plan - Diagnosis (1) Acute on chronic systolic (congestive) heart failure Is this a current diagnosis for this admission?: Yes (2) CHF exacerbation Qualifiers: Heart failure type: systolic Qualified Code(s): I50.23 - Acute on chronic systolic (congestive) heart failure Is this a current diagnosis for this admission?: Yes (3) Diabetes mellitus type 2 in nonobese Is this a current diagnosis for this admission?: Yes (4) Hypertensive emergency Is this a current diagnosis for this admission?: Yes (5) Elevated troponin Is this a current diagnosis for this admission?: Yes - Notes Notes: Acute on chronic systolic heart failure: Patient had recent prolonged hospitalization for 9 days at the hospital in [facility]. Recommend requesting records to see what has been performed there. At this point agree with IV diuretics, optimize therapy of CHF with entresto, carvedilol, spironolactone, hydralazine nitrate combination as needed. 2D echo ordered was reviewed. It shows severely depressed LVEF with moderate mitral regurgitation, moderate tricuspid regurgitation. CHF exacerbation: See plans above. Hypertensive emergency: Patient presented with this. Possibly related to noncompliance. Patient advised compliance with dietary restriction, fluid restriction and also medications. Elevated troponin I: [place] to be related to CHF and severe hypertension. Awaiting previous cardiac evaluation on her previous hospitalization report to be available before scheduling patient for any further evaluation. Patient will need LifeVest to be discharged on on discharge. - Time Time Spent: 30 to 50 Minutes - More than 50% of the time spent coordinating care , discussing management plans with involved caregivers. Management plans discussed with involved personnels. Medical decision making was of moderate to high complexity, patient's has multiple comorbidities. Medications reviewed and adjusted accordingly: Yes
--- NOTE | 2018-02-23 11:24 | PDOC PROGRESS REPORT ---
Subjective Progress Note for:: 02/23/18 Subjective:: Patient seems to be doing better with gradual improvement. Pt is denying any chest arm or neck discomfort. Patient denying any PND, orthopnea. Patient denied any sustained palpitations, dizziness, syncope, near syncope. Patient denying any fever chills. Patient denying any other significant discomfort. Patient is maintaining sinus rhythm. Frequent VPCs are still noted. Review of systems: Rest review of systems negative. Medications: Medications have been reviewed. Reason For Visit: ACUTE ON CHRONIC CHF EXACERBATION Physical Exam Vital Signs: Temp Pulse Resp BP Pulse Ox 97.5 F 92 17 135/99 H 100 02/23/18 07:10 02/23/18 07:10 02/23/18 07:10 02/23/18 07:10 02/23/18 07:10 Intake & Output 02/22/18 02/23/18 02/24/18 06:59 06:59 06:59 Intake Total 100 620 Balance 100 620 Weight 88.5 kg Exam: GENERAL: well-nourished and in no acute distress. Alert and oriented x3 HEAD: Atraumatic, normocephalic. EYES: Pupils equal round and reactive to light, extraocular movements intact, sclera anicteric, conjunctiva are normal. ENT: TMs normal, nares patent, oropharynx clear without exudates. Moist mucous membranes. No oral ulcerations or bleeding gums noted NECK: supple without lymphadenopathy. Trachea is central. No cervical or axillary lymphadenopathy noted. Carotids are 2+, JVD 8-10 cm LUNGS: Respiration seems nonlabored, no significant accessory muscle action noted. Bibasilar fine crackles noted. Left basal dullness noted. CHEST: Palpation of the chest wall shows no significant chest wall tenderness. 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 ABDOMEN: Soft, no significant tenderness appreciated, normoactive bowel sounds. No guarding, no rebound. No rigidity noted . No masses appreciated. EXTREMITIES: Pedal pulses are 1-2+, no calf tenderness noted. No clubbing or cyanosis. 1+ pedal edema noted NEUROLOGICAL: Focused neurological exam showed no significant neurologic deficit. Normal speech, no focal weakness appreciated. PSYCH: Normal mood, normal affect. Judgment and insight within normal limits. SKIN: No significant ecchymosis, skin is noted to be warm. MUSCULOSKELETAL EXAM: No significant acute joint swelling noted. Results Laboratory Results: 02/23/18 04:18 02/23/18 04:18 02/23/18 02/23/18 04:18 04:18 WBC 5.0 RBC 4.53 Hgb 11.4 L Hct 36.3 MCV 80 MCH 25.3 L MCHC 31.6 L RDW 19.3 H Plt Count 264 Seg Neutrophils % 65.2 Lymphocytes % 21.9 Monocytes % 8.0 Eosinophils % 4.1 Basophils % 0.8 Absolute Neutrophils 3.3 Absolute Lymphocytes 1.1 Absolute Monocytes 0.4 Absolute Eosinophils 0.2 Absolute Basophils 0.0 Sodium 141.8 Potassium 3.4 L Chloride 100 Carbon Dioxide 29 Anion Gap 13 BUN 22 H Creatinine 0.68 Est GFR ( Amer) > 60 Est GFR (Non-Af Amer) > 60 Glucose 184 H Calcium 8.4 Magnesium 1.4 L Total Bilirubin 0.3 AST 24 ALT 33 Alkaline Phosphatase 85 Total Protein 6.1 L Albumin 3.1 L 02/21/18 02/22/18 02/22/18 22:55 04:37 10:44 Creatine Kinase CK-MB (CK-2) Troponin I 0.082 0.082 0.063 02/22/18 02/22/18 02/23/18 22:50 22:50 04:18 Creatine Kinase 41 43 CK-MB (CK-2) 0.88 Troponin I 0.048 02/23/18 04:18 Creatine Kinase CK-MB (CK-2) 0.90 Troponin I 0.052 EKG Comments: Shows sinus rhythm with frequent VPCs. Impressions: Chest X-Ray 02/21/18 14:36 IMPRESSION: LEFT PLEURAL EFFUSION WITH LEFT LOWER LOBE ATELECTASIS AND/OR INFILTRATE. Lung Scan-VQ NM 02/21/18 18:14 IMPRESSION: Left basilar areas of photopenia consistent with the airspace disease-effusion seen on radiograph. No ventilation-perfusion mismatches. Assessment & Plan - Diagnosis (1) Acute on chronic systolic (congestive) heart failure Is this a current diagnosis for this admission?: Yes (2) CHF exacerbation Qualifiers: Heart failure type: systolic Qualified Code(s): I50.23 - Acute on chronic systolic (congestive) heart failure Is this a current diagnosis for this admission?: Yes (3) Diabetes mellitus type 2 in nonobese Is this a current diagnosis for this admission?: Yes (4) Hypertensive emergency Is this a current diagnosis for this admission?: Yes (5) Elevated troponin Is this a current diagnosis for this admission?: Yes - Notes Notes: Have ordered for discharge summary and previous cardiac evaluation report from other hospital in [facility]. Have also asked nurse to have a LifeVest application form on the chart. Patient will benefit from CHF education. In the meantime continue with current medications. Medical regimen will be gradually optimized. Have also ordered CT scan without contrast of the chest to evaluate any underlying lung pathology and pleural effusion. Acute on chronic systolic heart failure: Patient had recent prolonged hospitalization for 9 days at the hospital in [facility]. Recommend requesting records to see what has been performed there. At this point agree with IV diuretics, optimize therapy of CHF with entresto, carvedilol, spironolactone, hydralazine nitrate combination as needed. 2D echo ordered was reviewed. It shows severely depressed LVEF with moderate mitral regurgitation, moderate tricuspid regurgitation. CHF exacerbation: See plans above. Hypertensive emergency: Patient presented with this. Possibly related to noncompliance. Patient advised compliance with dietary restriction, fluid restriction and also medications. Elevated troponin I: [place] to be related to CHF and severe hypertension. Awaiting previous cardiac evaluation on her previous hospitalization report to be available before scheduling patient for any further evaluation. Patient will need LifeVest to be discharged on on discharge. - Time Time with patient: Greater than 35 minutes - CODE STATUS was discussed, patient remains full code. Surrogate decision-maker unchanged. Multiple medical problems were addressed. More than 50% of the time spent coordinating care, discussing management plans with involved caregivers. Management plans discussed with involved personnels. Medical decision making was of moderate to high complexity, patient's has multiple comorbidities. Medications reviewed and adjusted accordingly: Yes
[2018-02-23 11:32] LABS: CREATINE KINASE MB 0.81 ng/mL (<4.55)
[2018-02-23 11:35] LABS: TROPONIN I 0.047 ng/mL
--- NOTE | 2018-02-23 13:45 | RADIOLOGY REPORT (SQ) ---
EXAM DESCRIPTION: CT CHEST WITHOUT COMPLETED DATE/TIME: 02/23/2018 1:16 pm REASON FOR STUDY: Pleural effusion COMPARISON: AP chest 02/21/2018 Ventilation-perfusion scan 02/21/2018 TECHNIQUE: CT scan performed of the chest without intravenous contrast. Images reviewed with lung, soft tissue and bone windows. Reconstructed coronal and sagittal MPR images reviewed. All images st ored on PACS. All CT scanners at this facility use dose modulation, iterative reconstruction, and/or weight based d osing when appropriate to reduce radiation dose to as low as reasonably achievable (ALARA). [facility]: Dose Right [facility]: CareDose [facility]: Dose Right [facility]: Teradose 4D [facility]: [employer] RADIATION DOSE: CT Rad equipment meets quality standard of care and radiation dose reduction techniq ues were employed. CTDIvol: 14.2 mGy. DLP: 554 mGy-cm. mGy. LIMITATIONS: No technical limitations. FINDINGS: LUNGS AND PLEURA: Small left pleural effusion is present with adjacent basilar atelectasis . This correlates with chest film 02/21/2018. Remainder of the lungs are clear. No right pleural effusion. No right or left pneumothorax. HILAR AND MEDIASTINAL STRUCTURES: No identified masses or abnormal nodes. No obvious aneurysm. HEART AND VASCULAR STRUCTURES: Moderate cardiomegaly. No gross pericardial effusion UPPER ABDOMEN: No significant findings. Limited exam. THYROID AND OTHER SOFT TISSUES: No masses. No adenopathy. BONES: No significant finding. HARDWARE: None in the chest. OTHER: No other significant findings. IMPRESSION: Small left pleural effusion with adjacent airspace disease likely atelectasis. Moderate cardiomegaly TECHNICAL DOCUMENTATION: JOB ID: [id number] Quality ID # [id number]: Final reports with documentation of one or more dose reduction techniques (e.g., Au tomated exposure control, adjustment of the mA and/or kV according to patient size, use of iterative reconstruction technique) 2010 [employer]- All Rights Reserved Reading location - IP/workstation name: [email or web address]
[2018-02-23] MEDS ORDERED: POTASSIUM CHLORIDE 10 MEQ CAPSULE.ER PO ONE (14:00)
[2018-02-23] MEDS: MAGNESIUM SULFATE/D5W 1 GM/100 ML RTUPB IV SCH ×2 (14:40→16:37)
--- NOTE | 2018-02-23 17:48 | PDOC PROGRESS REPORT ---
Subjective Progress Note for:: 02/23/18 Subjective:: Assume care today. Ms. gomez was admitted for acute CHF exacerbation. No acute event overnight. Patient says that her breathing is much better today but she is still a little short of breath. She denies any chest pain, palpitations or dizziness. Patient denies palpitations despite having PVCs. Reason For Visit: ACUTE ON CHRONIC CHF EXACERBATION Physical Exam Vital Signs: Temp Pulse Resp BP Pulse Ox 97.8 F 95 18 137/104 H 100 02/23/18 14:56 02/23/18 14:56 02/23/18 14:56 02/23/18 14:56 02/23/18 14:56 Intake & Output 02/22/18 02/23/18 02/24/18 06:59 06:59 06:59 Intake Total 100 620 720 Balance 100 620 720 Weight 195 lb 1.745 oz General appearance: PRESENT: no acute distress, well-developed, well-nourished Head exam: PRESENT: atraumatic, normocephalic Eye exam: PRESENT: conjunctiva pink, EOMI, PERRLA. ABSENT: scleral icterus Ear exam: PRESENT: normal external ear exam Neck exam: ABSENT: carotid bruit, JVD, lymphadenopathy, thyromegaly Respiratory exam: PRESENT: rhonchi, other - Decreased breath sounds in the left base. ABSENT: rales, wheezes Cardiovascular exam: PRESENT: RRR, systolic murmur Pulses: PRESENT: normal dorsalis pedis pul GI/Abdominal exam: PRESENT: normal bowel sounds, soft. ABSENT: distended, guarding, mass, organolmegaly, rebound, tenderness Rectal exam: PRESENT: deferred Extremities exam: PRESENT: full ROM. ABSENT: calf tenderness, clubbing, pedal edema Results Laboratory Results: 02/23/18 04:18 02/23/18 04:18 02/23/18 02/23/18 04:18 04:18 WBC 5.0 RBC 4.53 Hgb 11.4 L Hct 36.3 MCV 80 MCH 25.3 L MCHC 31.6 L RDW 19.3 H Plt Count 264 Seg Neutrophils % 65.2 Lymphocytes % 21.9 Monocytes % 8.0 Eosinophils % 4.1 Basophils % 0.8 Absolute Neutrophils 3.3 Absolute Lymphocytes 1.1 Absolute Monocytes 0.4 Absolute Eosinophils 0.2 Absolute Basophils 0.0 Sodium 141.8 Potassium 3.4 L Chloride 100 Carbon Dioxide 29 Anion Gap 13 BUN 22 H Creatinine 0.68 Est GFR ( Amer) > 60 Est GFR (Non-Af Amer) > 60 Glucose 184 H Calcium 8.4 Magnesium 1.4 L Total Bilirubin 0.3 AST 24 ALT 33 Alkaline Phosphatase 85 Total Protein 6.1 L Albumin 3.1 L 02/21/18 02/22/18 02/22/18 22:55 04:37 10:44 Creatine Kinase CK-MB (CK-2) Troponin I 0.082 0.082 0.063 02/22/18 02/22/18 02/23/18 22:50 22:50 04:18 Creatine Kinase 41 43 CK-MB (CK-2) 0.88 Troponin I 0.048 02/23/18 02/23/18 02/23/18 04:18 10:42 10:42 Creatine Kinase 37 CK-MB (CK-2) 0.90 0.81 Troponin I 0.052 0.047 Impressions: Chest X-Ray 02/21/18 14:36 IMPRESSION: LEFT PLEURAL EFFUSION WITH LEFT LOWER LOBE ATELECTASIS AND/OR INFILTRATE. Lung Scan-VQ NM 02/21/18 18:14 IMPRESSION: Left basilar areas of photopenia consistent with the airspace disease-effusion seen on radiograph. No ventilation-perfusion mismatches. Chest CT 02/23/18 00:00 IMPRESSION: Small left pleural effusion with adjacent airspace disease likely atelectasis. Moderate cardiomegaly Assessment & Plan - Diagnosis (1) Acute on chronic systolic (congestive) heart failure Is this a current diagnosis for this admission?: Yes Plan: Improved. Continue Lasix, Coreg. Cardiology following. Noted recent echo which showed an EF of 35%. Cardiology following and has requested for a LifeVest. (2) Diabetes mellitus type 2 in nonobese Is this a current diagnosis for this admission?: Yes Plan: Patient was recently diagnosed with diabetes. Noted sugars. Continue sliding scale coverage for now. (3) Hypokalemia Is this a current diagnosis for this admission?: Yes Plan: Likely diuretic induced. Will replace potassium to keep potassium level of more than 4 due to frequent PVCs. (4) Hypomagnesemia Is this a current diagnosis for this admission?: Yes Plan: Replace magnesium. Go to keep her magnesium level of 2 or more. - Time Time Spent with patient: 15-24 minutes
[2018-02-23] MEDS: ATORVASTATIN CALCIUM 80 MG TABLET PO SCH (21:07)
[2018-02-24 07:14] LABS: ANION GAP 13 (5-19); BLOOD UREA NITROGEN 24 mg/dL (7-20); CALCIUM 8.2 mg/dL (8.4-10.2); CARBON DIOXIDE 28 mmol/L (22-30); CHLORIDE 100 mmol/L (98-107); GLUCOSE 176 mg/dL (75-110); SODIUM 140.8 mmol/L (137-145)
[2018-02-24] MEDS: ENOXAPARIN SODIUM INJ 40 MG/0.4 ML DISP.SYRIN SUBCUT SCH (09:42)
[2018-02-24] MEDS: CLOPIDOGREL BISULFATE 75 MG TABLET PO SCH (09:42)
[2018-02-24] MEDS: SACUBITRIL/VALSARTAN 49 MG/51 MG TABLET PO SCH (09:42)
[2018-02-24] MEDS: FUROSEMIDE INJ/PF 40 MG/4 ML SDV IV SCH ×2 (09:42→22:12)
[2018-02-24] MEDS: CARVEDILOL 12.5 MG TABLET PO SCH ×2 (09:42→22:12)
[2018-02-24] MEDS: INSULIN LISPRO 100 UNIT/ML 3 ML VIAL SUBCUT PRN ×2 (12:14→22:17)
[2018-02-24] MEDS: ACETAMINOPHEN 325 MG TABLET PO PRN (14:58)
--- NOTE | 2018-02-24 18:15 | PDOC PROGRESS REPORT ---
Subjective Progress Note for:: 02/24/18 Subjective:: Ms. gomez was admitted for acute CHF exacerbation. No acute event overnight. She says her breathing has significantly improved and she is close to her baseline. She denies any chest pain, palpitations or dizziness. mechanical planner is helping with getting a lifevest for patient as she does not have health insurance Reason For Visit: ACUTE ON CHRONIC CHF EXACERBATION Physical Exam Vital Signs: Temp Pulse Resp BP Pulse Ox 98.0 F 93 17 141/107 H 99 02/24/18 15:10 02/24/18 15:10 02/24/18 15:10 02/24/18 15:10 02/24/18 15:10 Intake & Output 02/23/18 02/24/18 02/25/18 06:59 06:59 06:59 Intake Total 620 1174 738 Balance 620 1174 738 Weight 195 lb 1.745 oz 213 lb 2.992 oz General appearance: PRESENT: no acute distress, well-developed, well-nourished Head exam: PRESENT: atraumatic, normocephalic Eye exam: PRESENT: conjunctiva pink, EOMI, PERRLA. ABSENT: scleral icterus Ear exam: PRESENT: normal external ear exam Neck exam: ABSENT: carotid bruit, JVD, lymphadenopathy, thyromegaly Respiratory exam: PRESENT: clear to auscultation [place]. ABSENT: rales, rhonchi, wheezes Cardiovascular exam: PRESENT: RRR, systolic murmur Pulses: PRESENT: normal dorsalis pedis pul GI/Abdominal exam: PRESENT: normal bowel sounds, soft. ABSENT: distended, guarding, mass, organolmegaly, rebound, tenderness Rectal exam: PRESENT: deferred Extremities exam: PRESENT: +1 edema Neurological exam: PRESENT: alert, awake, oriented to person, oriented to place , oriented to time, oriented to situation, CN II-XII grossly intact. ABSENT: motor sensory deficit Results Laboratory Results: 02/23/18 04:18 02/24/18 05:24 02/24/18 05:24 Sodium 140.8 Potassium 4.0 Chloride 100 Carbon Dioxide 28 Anion Gap 13 BUN 24 H Creatinine 0.63 Est GFR ( Amer) > 60 Est GFR (Non-Af Amer) > 60 Glucose 176 H Calcium 8.2 L Magnesium 1.8 0802/22/18 02/22/18 22:55 04:37 10:44 Creatine Kinase CK-MB (CK-2) Troponin I 0.082 0.082 0.063 02/22/18 02/22/18 02/23/18 22:50 22:50 04:18 Creatine Kinase 41 43 CK-MB (CK-2) 0.88 Troponin I 0.048 02/23/18 02/23/18 02/23/18 04:18 10:42 10:42 Creatine Kinase 37 CK-MB (CK-2) 0.90 0.81 Troponin I 0.052 0.047 Impressions: Chest X-Ray 02/21/18 14:36 IMPRESSION: LEFT PLEURAL EFFUSION WITH LEFT LOWER LOBE ATELECTASIS AND/OR INFILTRATE. Lung Scan-VQ NM 02/21/18 18:14 IMPRESSION: Left basilar areas of photopenia consistent with the airspace disease-effusion seen on radiograph. No ventilation-perfusion mismatches. Chest CT 02/23/18 00:00 IMPRESSION: Small left pleural effusion with adjacent airspace disease likely atelectasis. Moderate cardiomegaly Assessment & Plan - Diagnosis (1) Acute on chronic systolic (congestive) heart failure Is this a current diagnosis for this admission?: Yes Plan: Improved. Continue Robert Pichardo. Cardiology following. Noted recent echo which showed an EF of 20-25%. Cardiology following and has requested for a LifeVest. Discharge planning and case management have been helping with acquiring a LifeVest for patient as she does not have health insurance. (2) Diabetes mellitus type 2 in nonobese Is this a current diagnosis for this admission?: Yes Plan: Patient was recently diagnosed with diabetes. Sugars at goal. Continue sliding scale coverage for now. (3) Hypokalemia Is this a current diagnosis for this admission?: Yes Plan: Resolved. (4) Hypomagnesemia Is this a current diagnosis for this admission?: Yes Plan: Resolved. - Time Time Spent with patient: 15-24 minutes
--- NOTE | 2018-02-24 18:45 | PDOC PROGRESS REPORT ---
Subjective Progress Note for:: 02/24/18 Subjective:: Patient seems to be doing better with gradual improvement. Pt is denying any chest arm or neck discomfort. Patient denying any PND, orthopnea. Patient denied any sustained palpitations, dizziness, syncope, near syncope. Patient denying any fever chills. Patient denying any other significant discomfort. Patient is maintaining sinus rhythm. Frequent VPCs are still noted. Review of systems: Rest review of systems negative. Medications: Medications have been reviewed. Reason For Visit: ACUTE ON CHRONIC CHF EXACERBATION Physical Exam Vital Signs: Temp Pulse Resp BP Pulse Ox 98.0 F 93 17 141/107 H 99 02/24/18 15:10 02/24/18 15:10 02/24/18 15:10 02/24/18 15:10 02/24/18 15:10 Intake & Output 02/23/18 02/24/18 02/25/18 06:59 06:59 06:59 Intake Total 620 1174 738 Balance 620 1174 738 Weight 88.5 kg 96.7 kg Exam: GENERAL: well-nourished and in no acute distress. Alert and oriented x3 HEAD: Atraumatic, normocephalic. EYES: Pupils equal round and reactive to light, extraocular movements intact, sclera anicteric, conjunctiva are normal. ENT: TMs normal, nares patent, oropharynx clear without exudates. Moist mucous membranes. No oral ulcerations or bleeding gums noted NECK: supple without lymphadenopathy. Trachea is central. No cervical or axillary lymphadenopathy noted. Carotids are 2+, JVD 10-12 cm LUNGS: Respiration seems nonlabored, no significant accessory muscle action noted. Bibasilar fine crackles are noted. No wheezes rales or rhonchi noted. No significant dullness noted on percussion. CHEST: Palpation of the chest wall shows no significant chest wall tenderness. HEART: [place] [employer]PER[employer]INET[employer]ER, No PSH, 1/6 RUTH aortic area, 1/6 tran systolic murmur mitral area, no rubs, no gallops. ABDOMEN: Soft, no significant tenderness appreciated, normoactive bowel sounds. No guarding, no rebound. No rigidity noted . No masses appreciated. EXTREMITIES: Pedal pulses are 1-2+, no calf tenderness noted. No clubbing or cyanosis. 1-2+ pedal edema noted NEUROLOGICAL: Focused neurological exam showed no significant neurologic deficit. Normal speech, no focal weakness appreciated. PSYCH: Normal mood, normal affect. Judgment and insight within normal limits. SKIN: No significant ecchymosis, skin is noted to be warm. MUSCULOSKELETAL EXAM: No significant acute joint swelling noted. Results Laboratory Results: 02/23/18 04:18 02/24/18 05:24 02/24/18 05:24 Sodium 140.8 Potassium 4.0 Chloride 100 Carbon Dioxide 28 Anion Gap 13 BUN 24 H Creatinine 0.63 Est GFR ( Amer) > 60 Est GFR (Non-Af Amer) > 60 Glucose 176 H Calcium 8.2 L Magnesium 1.8 02/21/18 02/22/18 02/22/18 22:55 04:37 10:44 Creatine Kinase CK-MB (CK-2) Troponin I 0.082 0.082 0.063 02/22/18 02/22/18 02/23/18 22:50 22:50 04:18 Creatine Kinase 41 43 CK-MB (CK-2) 0.88 Troponin I 0.048 02/23/18 02/23/18 02/23/18 04:18 10:42 10:42 Creatine Kinase 37 CK-MB (CK-2) 0.90 0.81 Troponin I 0.052 0.047 Impressions: Chest X-Ray 02/21/18 14:36 IMPRESSION: LEFT PLEURAL EFFUSION WITH LEFT LOWER LOBE ATELECTASIS AND/OR INFILTRATE. Lung Scan-VQ NM 02/21/18 18:14 IMPRESSION: Left basilar areas of photopenia consistent with the airspace disease-effusion seen on radiograph. No ventilation-perfusion mismatches. Chest CT 02/23/18 00:00 IMPRESSION: Small left pleural effusion with adjacent airspace disease likely atelectasis. Moderate cardiomegaly Assessment & Plan - Diagnosis (1) Acute on chronic systolic (congestive) heart failure Is this a current diagnosis for this admission?: Yes (2) CHF exacerbation Qualifiers: Heart failure type: systolic Qualified Code(s): I50.23 - Acute on chronic systolic (congestive) heart failure Is this a current diagnosis for this admission?: Yes (3) Diabetes mellitus type 2 in nonobese Is this a current diagnosis for this admission?: Yes (4) Hypertensive emergency Is this a current diagnosis for this admission?: Yes (5) Elevated troponin Is this a current diagnosis for this admission?: Yes - Notes Notes: Information from hospital from [place] reviewed. Patient was diagnosed to have nonischemic cardiomyopathy. Recommend predischarge BNP and chest x-ray PA and lateral. Also recommend predischarge chemistry panel. Patient will benefit from discharge planning consultation so that her medications can be provided. Also patient would need LifeVest to be on prior to discharge. - Time Time with patient: Greater than 35 minutes Medications reviewed and adjusted accordingly: Yes
[2018-02-24] MEDS: SACUBITRIL/VALSARTAN 97 MG/103 MG TABLET PO SCH (22:12)
[2018-02-24] MEDS: ATORVASTATIN CALCIUM 80 MG TABLET PO SCH (22:12)
[2018-02-25 05:27] LABS: ANION GAP 9 (5-19); BLOOD UREA NITROGEN 20 mg/dL (7-20); CALCIUM 8.1 mg/dL (8.4-10.2); CARBON DIOXIDE 34 mmol/L (22-30); CHLORIDE 100 mmol/L (98-107); GLUCOSE 190 mg/dL (75-110); POTASSIUM 3.4 mmol/L (3.6-5.0); SODIUM 142.7 mmol/L (137-145)
[2018-02-25] MEDS: ACETAMINOPHEN 325 MG TABLET PO PRN (09:19)
[2018-02-25] MEDS: FUROSEMIDE INJ/PF 40 MG/4 ML SDV IV SCH ×2 (09:23→22:15)
[2018-02-25] MEDS: CLOPIDOGREL BISULFATE 75 MG TABLET PO SCH (09:23)
[2018-02-25] MEDS: ENOXAPARIN SODIUM INJ 40 MG/0.4 ML DISP.SYRIN SUBCUT SCH (09:23)
[2018-02-25] MEDS: CARVEDILOL 12.5 MG TABLET PO SCH ×2 (09:23→22:15)
[2018-02-25] MEDS: SACUBITRIL/VALSARTAN 97 MG/103 MG TABLET PO SCH ×2 (09:23→22:16)
[2018-02-25] MEDS ORDERED: SACUBITRIL/VALSARTAN 49 MG/51 MG TABLET PO SCH (10:00)
[2018-02-25] MEDS: INSULIN LISPRO 100 UNIT/ML 3 ML VIAL SUBCUT PRN ×3 (12:21→22:50)
--- NOTE | 2018-02-25 13:22 | PDOC PROGRESS REPORT ---
Subjective Progress Note for:: 02/25/18 Subjective:: Ms. gomez was admitted for acute CHF exacerbation. No acute event overnight. She says she is still a little bit short of breath today but has continued to improve. She denies any chest pain, palpitations or dizziness. Pressures have continued to improve overnight. Reason For Visit: ACUTE ON CHRONIC CHF EXACERBATION Physical Exam Vital Signs: Temp Pulse Resp BP Pulse Ox 97.5 F 95 17 153/89 H 100 02/25/18 03:09 02/25/18 07:00 02/25/18 03:09 02/25/18 03:09 02/25/18 03:09 Intake & Output 02/24/18 02/25/18 02/26/18 06:59 06:59 06:59 Intake Total 1174 1444 Balance 1174 1444 Weight 213 lb 2.992 oz 207 lb 3.752 oz General appearance: PRESENT: no acute distress, well-developed, well-nourished Head exam: PRESENT: atraumatic, normocephalic Eye exam: PRESENT: conjunctiva pink, EOMI, PERRLA. ABSENT: scleral icterus Ear exam: PRESENT: normal external ear exam Mouth exam: PRESENT: moist, tongue midline Neck exam: ABSENT: carotid bruit, JVD, lymphadenopathy, thyromegaly Respiratory exam: PRESENT: rales - Occasional rales the left base Cardiovascular exam: PRESENT: RRR, systolic murmur Pulses: PRESENT: normal dorsalis pedis pul GI/Abdominal exam: PRESENT: normal bowel sounds, soft. ABSENT: distended, guarding, mass, organolmegaly, rebound, tenderness Rectal exam: PRESENT: deferred Neurological exam: PRESENT: alert, awake, oriented to person, oriented to place , oriented to time, oriented to situation, CN II-XII grossly intact. ABSENT: motor sensory deficit Results Laboratory Results: 02/23/18 04:18 02/25/18 04:57 02/25/18 04:57 Sodium 142.7 Potassium 3.4 L Chloride 100 Carbon Dioxide 34 H Anion Gap 9 BUN 20 Creatinine 0.57 Est GFR ( Amer) > 60 Est GFR (Non-Af Amer) > 60 Glucose 190 H Calcium 8.1 L 02/21/18 02/22/18 02/22/18 22:55 04:37 10:44 Creatine Kinase CK-MB (CK-2) Troponin I 0.082 0.082 0.063 02/22/18 02/22/18 02/23/18 22:50 22:50 04:18 Creatine Kinase 41 43 CK-MB (CK-2) 0.88 Troponin I 0.048 02/23/18 02/23/18 02/23/18 04:18 10:42 10:42 Creatine Kinase 37 CK-MB (CK-2) 0.90 0.81 Troponin I 0.052 0.047 Impressions: Chest X-Ray 02/21/18 14:36 IMPRESSION: LEFT PLEURAL EFFUSION WITH LEFT LOWER LOBE ATELECTASIS AND/OR INFILTRATE. Lung Scan-VQ NM 02/21/18 18:14 IMPRESSION: Left basilar areas of photopenia consistent with the airspace disease-effusion seen on radiograph. No ventilation-perfusion mismatches. Chest CT 02/23/18 00:00 IMPRESSION: Small left pleural effusion with adjacent airspace disease likely atelectasis. Moderate cardiomegaly Assessment & Plan - Diagnosis (1) Acute on chronic systolic (congestive) heart failure Is this a current diagnosis for this admission?: Yes Plan: Improved. Continue Coreg. [facility] following. Reviewed medical records from [facility]. Patient had a recent stress test which was negative for ischemia. Noted recent echo which showed an EF of 20-25%. Patient likely has an ischemic cardiomyopathy secondary to chronic PVCs with high burden. Patient does have a strong indication for a LifeVest. (2) Diabetes mellitus type 2 in nonobese Is this a current diagnosis for this admission?: Yes Plan: Patient was recently diagnosed with diabetes. Noted sugars which have been trending up. Will add Lantus coverage. Continue sliding scale coverage for now. (3) Hypokalemia Is this a current diagnosis for this admission?: Yes Plan: Likely diuretic induced. Added scheduled oral potassium replacement (4) Hypomagnesemia Is this a current diagnosis for this admission?: Yes Plan: Resolved. - Time Time Spent with patient: 25-34 minutes
[2018-02-25] MEDS: POTASSIUM CHLORIDE 10 MEQ CAPSULE.ER PO SCH (15:17)
[2018-02-25] MEDS: INSULIN GLARGINE,HUM.REC.ANLOG 1,000 UNIT/10 ML UNIT SUBCUT SCH (15:17)
[2018-02-25] MEDS ORDERED: ALPRAZOLAM 0.25 MG TABLET PO PRN (17:36)
--- NOTE | 2018-02-25 20:02 | PDOC PROGRESS REPORT ---
Subjective Progress Note for:: 02/25/18 Subjective:: Patient seems to be doing better with gradual improvement. Pt is denying any chest arm or neck discomfort. Patient denying any PND, orthopnea. Patient denied any sustained palpitations, dizziness, syncope, near syncope. Patient denying any fever chills. Patient denying any other significant discomfort. Patient is maintaining sinus rhythm. Frequent VPCs are still noted. Review of systems: Rest review of systems negative. Medications: Medications have been reviewed. Reason For Visit: ACUTE ON CHRONIC CHF EXACERBATION Physical Exam Vital Signs: Temp Pulse Resp BP Pulse Ox 97.3 F 88 16 140/92 H 100 02/25/18 15:14 02/25/18 15:14 02/25/18 15:14 02/25/18 15:14 02/25/18 15:14 Intake & Output 02/24/18 02/25/18 02/26/18 06:59 06:59 06:59 Intake Total 1174 1444 486 Balance 1174 1444 486 Weight 96.7 kg 94 kg Exam: GENERAL: well-nourished and in no acute distress. Alert and oriented x3 HEAD: Atraumatic, normocephalic. EYES: Pupils equal round and reactive to light, extraocular movements intact, sclera anicteric, conjunctiva are normal. ENT: TMs normal, nares patent, oropharynx clear without exudates. Moist mucous membranes. No oral ulcerations or bleeding gums noted NECK: supple without lymphadenopathy. Trachea is central. No cervical or axillary lymphadenopathy noted. Carotids are 2+, JVD WNL LUNGS: Respiration seems nonlabored, no significant accessory muscle action noted. Few bibasilar crackles are noted. No wheezes rales or rhonchi noted. No significant dullness noted on percussion. CHEST: Palpation of the chest wall shows no significant chest wall tenderness. 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 ABDOMEN: Soft, no significant tenderness appreciated, normoactive bowel sounds. No guarding, no rebound. No rigidity noted . No masses appreciated. EXTREMITIES: Pedal pulses are 1-2+, no calf tenderness noted. No clubbing or cyanosis. Trace to 1+ pedal edema noted NEUROLOGICAL: Focused neurological exam showed no significant neurologic deficit. Normal speech, no focal weakness appreciated. PSYCH: Normal mood, normal affect. Judgment and insight within normal limits. SKIN: No significant ecchymosis, skin is noted to be warm. MUSCULOSKELETAL EXAM: No significant acute joint swelling noted. Results Laboratory Results: 02/23/18 04:18 02/25/18 04:57 02/25/18 04:57 Sodium 142.7 Potassium 3.4 L Chloride 100 Carbon Dioxide 34 H Anion Gap 9 BUN 20 Creatinine 0.57 Est GFR ( Amer) > 60 Est GFR (Non-Af Amer) > 60 Glucose 190 H Calcium 8.1 L 02/21/18 02/22/18 02/22/18 22:55 04:37 10:44 Creatine Kinase CK-MB (CK-2) Troponin I 0.082 0.082 0.063 02/22/18 02/22/18 02/23/18 22:50 22:50 04:18 Creatine Kinase 41 43 CK-MB (CK-2) 0.88 Troponin I 0.048 02/23/18 02/23/18 02/23/18 04:18 10:42 10:42 Creatine Kinase 37 CK-MB (CK-2) 0.90 0.81 Troponin I 0.052 0.047 Impressions: Chest X-Ray 02/21/18 14:36 IMPRESSION: LEFT PLEURAL EFFUSION WITH LEFT LOWER LOBE ATELECTASIS AND/OR INFILTRATE. Lung Scan-VQ NM 02/21/18 18:14 IMPRESSION: Left basilar areas of photopenia consistent with the airspace disease-effusion seen on radiograph. No ventilation-perfusion mismatches. Chest CT 02/23/18 00:00 IMPRESSION: Small left pleural effusion with adjacent airspace disease likely atelectasis. Moderate cardiomegaly Assessment & Plan - Diagnosis (1) Acute on chronic systolic (congestive) heart failure Is this a current diagnosis for this admission?: Yes (2) CHF exacerbation Qualifiers: Heart failure type: systolic Qualified Code(s): I50.23 - Acute on chronic systolic (congestive) heart failure Is this a current diagnosis for this admission?: Yes (3) Diabetes mellitus type 2 in nonobese Is this a current diagnosis for this admission?: Yes (4) Hypertensive emergency Is this a current diagnosis for this admission?: Yes (5) Elevated troponin Is this a current diagnosis for this admission?: Yes - Notes Notes: Patient placed on increased dose of entresto. I am told by patient that the hospital is arranging for LifeVest. Talk with LifeVest rep. In the meantime optimize medical management. Patient will benefit from CHF management instructions Acute on chronic systolic heart failure: Continue patient on diuretics, optimize therapy of CHF with entresto, carvedilol, spironolactone, hydralazine nitrate combination as needed. 2D echo ordered was reviewed with the patient. It shows severely depressed LVEF with moderate mitral regurgitation, moderate tricuspid regurgitation. CHF exacerbation: See plans above. Hypertensive emergency: Patient presented with this. Possibly related to noncompliance. Patient advised compliance with dietary restriction, fluid restriction and also medications. Elevated troponin I: [place] to be related to CHF and severe hypertension. Awaiting previous cardiac evaluation on her previous hospitalization report to be available before scheduling patient for any further evaluation. Patient will need LifeVest to be discharged on on discharge. Significant time spent on arranging this and getting in touch with LifeVest rep. - Time Time with patient: Greater than 35 minutes - LifeVest arrangement in process. Had to spend a lot of time talking to the patient about need of LifeVest, trying to talk with the administration and also rep regarding need for this for the patient prior to discharge. More than 50% of the time spent coordinating care, discussing management plans with involved caregivers. Management plans discussed with involved personnels. Medical decision making was of moderate to high complexity, patient's has multiple comorbidities. Medications reviewed and adjusted accordingly: Yes
[2018-02-25] MEDS: ATORVASTATIN CALCIUM 80 MG TABLET PO SCH (22:15)
[2018-02-26] MEDS: ACETAMINOPHEN 325 MG TABLET PO PRN (03:27)
[2018-02-26] MEDS: INSULIN LISPRO 100 UNIT/ML 3 ML VIAL SUBCUT PRN ×3 (08:09→16:40)
[2018-02-26] MEDS: INSULIN GLARGINE,HUM.REC.ANLOG 1,000 UNIT/10 ML UNIT SUBCUT SCH (10:57)
[2018-02-26] MEDS: ENOXAPARIN SODIUM INJ 40 MG/0.4 ML DISP.SYRIN SUBCUT SCH (10:59)
[2018-02-26] MEDS: POTASSIUM CHLORIDE 10 MEQ CAPSULE.ER PO SCH (11:02)
[2018-02-26] MEDS: CLOPIDOGREL BISULFATE 75 MG TABLET PO SCH (11:03)
[2018-02-26] MEDS: CARVEDILOL 12.5 MG TABLET PO SCH (11:03)
[2018-02-26] MEDS: SACUBITRIL/VALSARTAN 97 MG/103 MG TABLET PO SCH (11:04)
[2018-02-26] MEDS: FUROSEMIDE INJ/PF 40 MG/4 ML SDV IV SCH (11:04)
[2018-02-26 16:59] VITALS: BP 128/95
--- NOTE | 2018-02-26 17:45 | PDOC DISCHARGE SUMMARY ---
General - Admit/Disc Date/PCP Admission Date/Primary Care Provider: 02/21/18 20:52 Discharge Date: 02/26/18 - Discharge Diagnosis (1) Acute on chronic systolic (congestive) heart failure Is this a current diagnosis for this admission?: Yes (2) Diabetes mellitus type 2 in nonobese Is this a current diagnosis for this admission?: Yes (3) Hypokalemia Is this a current diagnosis for this admission?: Yes (4) Hypomagnesemia Is this a current diagnosis for this admission?: Yes - Additional Information Resuscitation Status: Full Code Discharge Diet: Cardiac, Diabetic Discharge Activity: Activity As Tolerated, Weigh Daily Prescriptions: Alprazolam [Xanax 0.25 mg Tablet] 0.25 mg PO QHS #5 tab Carvedilol [Coreg 12.5 mg Tablet] 12.5 mg PO Q12 #60 tablet Clopidogrel Bisulfate [Plavix 75 mg Tablet] 75 mg PO DAILY #30 tablet Furosemide [Lasix 40 mg Tablet] 40 mg PO QAM 30 Days #30 tablet Potassium Chloride [Klor-Con 10 Meq Capsule ER] 20 meq PO DAILY #30 capsule.er Sacubitril/Valsartan [Entresto 97 mg/103 mg Tablet] 1 tab PO Q12 #60 tablet Home Medications: Atorvastatin Calcium [Lipitor] 80 mg PO QHS 02/21/18 Glipizide 5 mg PO Q12 02/21/18 Metformin HCl [Glucophage 500 mg Tablet] 500 mg PO Q12 02/21/18 Acetaminophen [Tylenol 325 mg Tablet] 650 mg PO Q4HP PRN tablet 02/26/18 Alprazolam [Xanax 0.25 mg Tablet] 0.25 mg PO QHS #5 tab 02/26/18 Carvedilol [Coreg 12.5 mg Tablet] 12.5 mg PO Q12 #60 tablet 02/26/18 Clopidogrel Bisulfate [Plavix 75 mg Tablet] 75 mg PO DAILY #30 tablet 02/26/18 Furosemide [Lasix 40 mg Tablet] 40 mg PO QAM 30 Days #30 tablet 02/26/18 Potassium Chloride [Klor-Con 10 Meq Capsule ER] 20 meq PO DAILY #30 capsule.er 02/26/18 Sacubitril/Valsartan [Entresto 97 mg/103 mg Tablet] 1 tab PO Q12 #60 tablet History of Present Illness History of Present Illness: TAMAR ESCOBAR is a 52 year old female sent into the emergency department planing of progressive shortness of breath. On December patient was on vacation in [place], he started feeling sick, she thought was anxiety and she ended up hospitalized about 30 days, came back 01/29. She was diagnosed with diabetes mellitus type 2, hypertension, frequent PVCs, recently diagnosed CHF possible NICM and ejection fraction of 30%. Medications were given to her and advised her to have a primary care physician here to follow up, her son got sick and she did not get to have any appointment with any primary care. About a week ago her symptoms started again with generalized weakness, progressive shortness of breath, pleuritic chest pain, generalized weakness, she had to frequently stop to breathe, her son was discharged today and she started to come to the emergency department. Denies any lower extremities edema or gain weight. In [place], was telling she has too many PVC's and was recommended to have an ablation but she felt she could do it [facility]. In the ED CTA could not be done as she has very small veins but a VQ scan was negative for PE. Patient does not have any small engine technician. In the ED given IV lasix. EKG shows sinus tachycardia with LVH. She was hypertensive with a blood pressure 191/142 initially. Troponins elevation 0.06. Hospital Course Hospital Course: Ms. escobar was admitted for acute CHF exacerbation after presenting with increasing shortness of breath, increasing leg swelling and chest tightness. Patient was recently diagnosed with heart failure in [facility] where she was noted to have multiple PVCs. She had recent stress test in [place] which did not indicate any ischemia. Her heart failure is likely deemed to be secondary to PVC induced/nonischemic cardiomyopathy. Patient was diuresed with IV Lasix. Her respiratory status did improve in the next few days with diuresis. Her medication was also optimized. Her Entresto was also increased. Her blood pressures did improve over the next few days. Patient was initially recommended to go for possible ablation due to persistent PVCs with high burden however her heart rate was also optimally controlled with Coreg. Cardiology was also following the patient. Her echocardiogram here showed severely depressed EF of 20-25%. Patient did have indication to get a LifeVest. Patient does not have medical insurance but fortunately, the hospital was able to acquire one for her. Patient will follow up with cardiology next week. Physical Exam Vital Signs: Temp Pulse Resp BP Pulse Ox 97.6 F 83 16 136/78 H 100 02/26/18 12:01 02/26/18 14:00 02/26/18 12:01 02/26/18 12:01 02/26/18 12:01 Intake & Output 02/25/18 02/26/18 02/27/18 06:59 06:59 06:59 Intake Total 1444 1066 Balance 1444 1066 Weight 207 lb 3.752 oz 208 lb 8.917 oz General appearance: PRESENT: no acute distress, well-developed, well-nourished Head exam: PRESENT: atraumatic, normocephalic Eye exam: PRESENT: conjunctiva pink, EOMI, PERRLA. ABSENT: scleral icterus Ear exam: PRESENT: normal external ear exam Neck exam: ABSENT: carotid bruit, JVD, lymphadenopathy, thyromegaly Respiratory exam: PRESENT: clear to auscultation elida. ABSENT: rales, rhonchi, wheezes Cardiovascular exam: PRESENT: RRR, systolic murmur Pulses: PRESENT: normal dorsalis pedis pul GI/Abdominal exam: PRESENT: normal bowel sounds, soft. ABSENT: distended, guarding, mass, organolmegaly, rebound, tenderness Rectal exam: PRESENT: deferred Neurological exam: PRESENT: alert, awake, oriented to person, oriented to place , oriented to time, oriented to situation, CN II-XII grossly intact. ABSENT: motor sensory deficit Results Laboratory Results: 02/23/18 04:18 02/25/18 04:57 02/21/18 02/22/18 02/22/18 22:55 04:37 10:44 Creatine Kinase CK-MB (CK-2) Troponin I 0.082 0.082 0.063 02/22/18 02/22/18 02/23/18 22:50 22:50 04:18 Creatine Kinase 41 43 CK-MB (CK-2) 0.88 Troponin I 0.048 02/23/18 02/23/18 02/23/18 04:18 10:42 10:42 Creatine Kinase 37 CK-MB (CK-2) 0.90 0.81 Troponin I 0.052 0.047 Impressions: Chest X-Ray 02/21/18 14:36 IMPRESSION: LEFT PLEURAL EFFUSION WITH LEFT LOWER LOBE ATELECTASIS AND/OR INFILTRATE. Lung Scan-VQ NM 02/21/18 18:14 IMPRESSION: Left basilar areas of photopenia consistent with the airspace disease-effusion seen on radiograph. No ventilation-perfusion mismatches. Chest CT 02/23/18 00:00 IMPRESSION: Small left pleural effusion with adjacent airspace disease likely atelectasis. Moderate cardiomegaly Qualifiers - * PATIENT BEING DISCHARGED WITH ANY OF THE FOLLOWING DIAGNOSIS: Heart Failure CA Pt being discharged on Aspirin therapy?: No Reason(s) for not prescribing Aspirin therapy:: Medical Contraindication - On clopidogrel CA Pt being discharged on Statins?: Yes CA Pt discharged ACEI/ARBS?: No Reason(s) for not prescribing ACEI/ARBS:: Medical Contraindication - Patient on Entresto. HF Pt being discharged on ACEI for LVEF less than 40%?: No Reason(s) for not prescribing ACEI:: Medical Contraindication - Patient on Entresto. HF Pt being discharged on ARBS for LVEF less than 40%?: No Reason(s) for not prescribing ARBS:: Medical Contraindication - Patient on Entresto. HF Pt with Afib discharged with Warfarin?: No Reason(s) for not prescribing Warfarin:: Not indicated HF Pt discharged on evidence-based Beta Chely:: Yes
--- NOTE | 2018-02-26 20:00 | PDOC PROGRESS REPORT ---
Subjective Progress Note for:: 02/26/18 Subjective:: Patient seems to be doing better. Patient had LifeVest delivered yesterday and currently wearing LifeVest. Pt is denying any chest arm or neck discomfort. Patient denying any PND, orthopnea. Patient denied any sustained palpitations, dizziness, syncope, near syncope. Patient denying any fever chills. Patient denying any other significant discomfort. Patient is maintaining sinus rhythm. Frequent VPCs are still noted. Review of systems: Rest review of systems negative. Medications: Medications have been reviewed. Reason For Visit: ACUTE ON CHRONIC CHF EXACERBATION Physical Exam Vital Signs: Temp Pulse Resp BP Pulse Ox 97.6 F 83 16 128/95 H 100 02/26/18 16:58 02/26/18 16:58 02/26/18 16:58 02/26/18 16:58 02/26/18 16:58 Intake & Output 02/25/18 02/26/18 02/27/18 06:59 06:59 06:59 Intake Total 1444 1066 Balance 1444 1066 Weight 94 kg 94.6 kg Exam: GENERAL: well-nourished and in no acute distress. Alert and oriented x3 HEAD: Atraumatic, normocephalic. EYES: Pupils equal round and reactive to light, extraocular movements intact, sclera anicteric, conjunctiva are normal. ENT: TMs normal, nares patent, oropharynx clear without exudates. Moist mucous membranes. No oral ulcerations or bleeding gums noted NECK: supple without lymphadenopathy. Trachea is central. No cervical or axillary lymphadenopathy noted. Carotids are 2+, JVD WNL LUNGS: Respiration seems nonlabored, no significant accessory muscle action noted. Breath sounds clear to auscultation bilaterally and equal noted. No wheezes rales or rhonchi noted. No significant dullness noted on percussion. CHEST: Palpation of the chest wall shows no significant chest wall tenderness. HEART: [place] PROPAGATOR, No PSH, 1/6 RUTH aortic area, 1/6 tran systolic murmur mitral area, no rubs, no gallops. ABDOMEN: Soft, no significant tenderness appreciated, normoactive bowel sounds. No guarding, no rebound. No rigidity noted . No masses appreciated. EXTREMITIES: Pedal pulses are 1-2+, no calf tenderness noted. No clubbing or cyanosis. negative pedal edema noted NEUROLOGICAL: Focused neurological exam showed no significant neurologic deficit. Normal speech, no focal weakness appreciated. PSYCH: Normal mood, normal affect. Judgment and insight within normal limits. SKIN: No significant ecchymosis, skin is noted to be warm. MUSCULOSKELETAL EXAM: No significant acute joint swelling noted. Results Laboratory Results: 02/23/18 04:18 02/25/18 04:57 02/21/18 02/22/18 02/22/18 22:55 04:37 10:44 Creatine Kinase CK-MB (CK-2) Troponin I 0.082 0.082 0.063 02/22/18 02/22/18 02/23/18 22:50 22:50 04:18 Creatine Kinase 41 43 CK-MB (CK-2) 0.88 Troponin I 0.048 02/23/18 02/23/18 02/23/18 04:18 10:42 10:42 Creatine Kinase 37 CK-MB (CK-2) 0.90 0.81 Troponin I 0.052 0.047 EKG Comments: Sinus rhythm, occasional VPCs noted. Impressions: Chest X-Ray 02/21/18 14:36 IMPRESSION: LEFT PLEURAL EFFUSION WITH LEFT LOWER LOBE ATELECTASIS AND/OR INFILTRATE. Lung Scan-VQ NM 02/21/18 18:14 IMPRESSION: Left basilar areas of photopenia consistent with the airspace disease-effusion seen on radiograph. No ventilation-perfusion mismatches. Chest CT 02/23/18 00:00 IMPRESSION: Small left pleural effusion with adjacent airspace disease likely atelectasis. Moderate cardiomegaly Assessment & Plan - Diagnosis (1) Acute on chronic systolic (congestive) heart failure Is this a current diagnosis for this admission?: Yes (2) CHF exacerbation Qualifiers: Heart failure type: systolic Qualified Code(s): I50.23 - Acute on chronic systolic (congestive) heart failure Is this a current diagnosis for this admission?: Yes (3) Diabetes mellitus type 2 in nonobese Is this a current diagnosis for this admission?: Yes (4) Hypertensive emergency Is this a current diagnosis for this admission?: Yes (5) Elevated troponin Is this a current diagnosis for this admission?: Yes - Notes Notes: Acute on chronic systolic heart failure: Patient medical management has been optimized greatly. She is currently without any shortness of breath. She has ambulated. Patient has LifeVest on and is ready for discharge. Discussed compliance with medications, compliance with salt and fluid restriction. CHF exacerbation: See plans above. Hypertensive emergency: Patient presented with this. Possibly related to noncompliance. Patient advised compliance with dietary restriction, fluid restriction and also medications. Currently blood pressure has been very satisfactory over last several days. Elevated troponin I: [place] to be related to CHF and severe hypertension. Do not feel any further evaluation is indicated. Patient was informed that should she have recurrent chest pain then heart catheterization may be the next step. Patient understands this. Patient advised close cardiology follow-up. I will be follow patient in my office. - Time Time with patient: Greater than 35 minutes - CODE STATUS was discussed, patient remains full code. Surrogate decision-maker unchanged. Multiple medical problems were addressed. More than 50% of the time spent coordinating care, discussing management plans with involved caregivers. Management plans discussed with involved personnels. Medical decision making was of moderate to high complexity, patient's has multiple comorbidities. Medications reviewed and adjusted accordingly: Yes
[2018-02-27] MEDS ORDERED: INSULIN GLARGINE,HUM.REC.ANLOG 1,000 UNIT/10 ML UNIT SUBCUT SCH (10:00)
== END 2018-02-26 17:30 | disposition home or self-care (01) | DRG 292 ==
LOC: ER 13:53 → EH 20:52 → 4W 02-22 07:43 → EH 02-22 07:46 → 4W 02-22 08:53 → 4S 02-22 17:01
PROVIDERS: ADMIT Internal Medicine; ATTEND Internal Medicine
DX: I50.23 Acute on chronic systolic (congestive) heart failure (principal); I16.1 Hypertensive emergency; E87.6 Hypokalemia; E83.42 Hypomagnesemia; E11.9 Type 2 diabetes mellitus without complications; Z79.84 Long term (current) use of oral hypoglycemic drugs; Z79.02 Long term (current) use of antithrombotics/antiplatelets; Z79.82 Long term (current) use of aspirin; Z79.899 Other long term (current) drug therapy; Z87.891 Personal history of nicotine dependence
CPT/HCPCS: 36415; 71045; 71250; 78582; 80048; 80053; 80061; 80307; 81001; 82550; 82553; 82962; 83036; 83735; 83880; 84100; 84443; 84484; 85025; 93005; 93010; 93306; 96365; 96375; 99285; A9540; A9567; J1650; J1815; J1940; J3475; J3490; Q9969

== ENCOUNTER 2018-06-03 11:20 | Inpatient (IN) | payer SELFPAY ==
[2018-06-03] MEDS ORDERED: ASPIRIN 81 MG TABLET, CHEWABLE PO ONE (11:51)
[2018-06-03 12:24] LABS: HEMATOCRIT 45.1 % (36.0-47.0); HEMOGLOBIN 14.5 g/dL (12.0-15.5); MEAN CORPUSCULAR HEMOGLOBIN 27.8 pg (27.0-33.4); MEAN CORPUSCULAR HGB CONC 32.2 g/dL (32.0-36.0); MEAN CORPUSCULAR VOLUME 87 fl (80-97); PLATELET COUNT 190 10^3/uL (150-450); RED BLOOD COUNT 5.22 10^6/uL (3.72-5.28); RED CELL DISTRIBUTION WIDTH 20.4 % (11.5-14.0); WHITE BLOOD COUNT 5.3 10^3/uL (4.0-10.5)
--- NOTE | 2018-06-03 12:41 | ER Document Report ---
ED Respiratory Problem - General Chief Complaint: Shortness Of Breath Stated Complaint: BLOOD PRESSURE ISSUE, SOB Time Seen by Provider: 06/03/18 11:46 Notes: 82-year-old female presents to the emergency department complaining of several days of shortness of breath. Patient began having shortness of breath several days ago and saw her family doctor yesterday. Noted that she had a little bit of a higher blood pressure and heart rate. The patient continued to have shortness of breath overnight she has a LifeVest on. The patient stated her shortness of breath seems to be worse with laying flat and exertion. She denies any chest pain. Denies significant calf pain or leg swelling. Denies fever chills has had a little bit of a scratchy throat. Some cough and congestion. TRAVEL OUTSIDE OF THE [place] IN LAST 30 DAYS: No - Related Data Allergies/Adverse Reactions: lorazepam [From Ativan] Allergy (Verified 06/03/18 11:23) Past Medical History - Social History Smoking Status: Never Smoker Chew tobacco use (# tins/day): No Frequency of alcohol use: None Drug Abuse: None Family History: Hypertension Patient has suicidal ideation: No Patient has homicidal ideation: No - Past Medical History Cardiac Medical History: Reports: Hx Congestive Heart Failure - EF 30%, Hx Hypertension Endocrine Medical History: Reports: Hx Diabetes Mellitus Type 2 Renal/ Medical History: Denies: Hx Peritoneal Dialysis Review of Systems - Review of Systems Constitutional: denies: Chills, Fever Cardiovascular: Orthopnea, Dyspnea. denies: Chest pain, Heart racing, Edema Respiratory: Short of breath Genitourinary: denies: Dysuria, Hematuria Neurological/Psychological: denies: Headaches -: Yes All other systems reviewed and negative Physical Exam - Vital signs Vitals: Temp Pulse Resp BP Pulse Ox 97.6 F 100 20 166/119 H 99 06/03/18 11:25 06/03/18 11:25 06/03/18 11:25 06/03/18 11:25 06/03/18 11:25 - Notes Notes: GENERAL_APPEARANCE: well_nourished, alert, cooperative VITALS: reviewed, see vital signs table. HEAD: no_swelling\tenderness on the head. EYES: PERRL, EOMI, conjunctiva_clear. NOSE: no_nasal_discharge. MOUTH: (-)decreased moisture. THROAT: no_tonsilar_inflammation, no_airway_obstruction. no_lymphadenopathy NECK: supple, no_neck_tenderness, (-)thyromegaly. BACK: no_back_tenderness. CHEST_WALL: no_chest_tenderness. LUNGS: no_wheezing, basilar crackles, no_rhonchi, (-)accessory muscle use, good air exchange bilateral. HEART: normal_rate, normal_rhythm, normal_S1, normal_S2, (-)S3, (-)S4, no_ murmur, no_rub. ABDOMEN: normal_BS, soft, no_abd_tenderness, (-)guarding, (-)rebound, no_ organomegaly, no_abd_masses. EXTREMITIES: good pulses in all_extremities, no_swelling\tenderness in the extremities, trace_edema. SKIN: warm, dry, good_color, no_rash. MENTAL_STATUS: speech_clear, oriented_X_3, normal_affect, responds_ appropriately to questions. NEURO: Neg Motor or Sensory Deficits on exam, CN 2-12 intact, DTR 2+ symmetric x 4, No cerbellar signs Course - Re-evaluation Re-evalutation: 06/03/18 15:18 Patient history had a viral URI but it seems to have exacerbated her CHF. Patient does have crackles on exam. BNP over 10,000 and chest x-ray does show some cephalization. We will give 80 of Lasix. She only takes 80 once a day and will give an inch of Nitropaste. Blood pressure is elevated. The patient still has not quite felt better after treatment I will speak with the hospital service to bring her in continue diuresing her. - Vital Signs Vital signs: Temp Pulse Resp BP Pulse Ox 97.6 F 100 20 166/119 H 100 06/03/18 11:25 06/03/18 11:25 06/03/18 11:25 06/03/18 11:25 06/03/18 12:28 - Laboratory Result Diagrams: 06/03/18 12:13 06/03/18 12:13 Laboratory results interpreted by me: 06/03/18 06/03/18 06/03/18 12:13 12:13 12:13 RDW 20.4 H Sodium 145.2 H Chloride 97 L Carbon Dioxide 33 H BUN 26 H Glucose 298 H Alkaline Phosphatase 175 H NT-Pro-B Natriuret Pep 92222 H - Diagnostic Test Radiology reviewed: Reports reviewed Radiology results interpreted by me: 06/03/18 15:15 Chest X-Ray 06/03/18 11:51 IMPRESSION: Cardiomegaly with probable retrocardiac atelectasis. No definite acute airspace opacity. - EKG Interpretation by Me EKG shows normal: Sinus rhythm Rhythm: NSR [place]/QRS: Left axis deviation P Waves: Other - LVH When compared to previous EKG there are: No significant change Discharge - Discharge Clinical Impression: Acute on chronic systolic (congestive) heart failure Condition: Fair Disposition: ADMITTED INPATIENT Admitting Provider: Hospitalist Unit Admitted: Telemetry Referrals: VIKTOR NGUYEN MD [Primary Care Provider] - Follow up as needed
[2018-06-03 12:45] LABS: ALANINE AMINOTRANSFERASE 40 U/L (9-52); ALBUMIN 3.7 g/dL (3.5-5.0); ALKALINE PHOSPHATASE 175 U/L (38-126); ANION GAP 15 (5-19); ASPARTATE AMINO TRANSFERASE 32 U/L (14-36); BILIRUBIN,DIRECT 0.3 mg/dL (0.0-0.4); BILIRUBIN,TOTAL 0.7 mg/dL (0.2-1.3); BLOOD UREA NITROGEN 26 mg/dL (7-20); CALCIUM 9.4 mg/dL (8.4-10.2); CARBON DIOXIDE 33 mmol/L (22-30); CHLORIDE 97 mmol/L (98-107); CREATINE KINASE 41 U/L (30-135); GLUCOSE 298 mg/dL (75-110); POTASSIUM 4.1 mmol/L (3.6-5.0); SODIUM 145.2 mmol/L (137-145); TOTAL PROTEIN 6.8 g/dL (6.3-8.2)
[2018-06-03 12:57] LABS: CREATINE KINASE MB 0.85 ng/mL (<4.55)
[2018-06-03 12:58] LABS: TROPONIN I 0.043 ng/mL
[2018-06-03 13:01] LABS: ABSOLUTE LYMPHOCYTES# (MANUAL) 1.1 10^3/uL (0.5-4.7); ABSOLUTE MONOCYTES # (MANUAL) 0.4 10^3/uL (0.1-1.4); ABSOLUTE NEUTROPHILS# (MANUAL) 3.7 10^3/uL (1.7-8.2); BASOPHILS % (MANUAL) 1 % (0-2); EOSINOPHILS % (MANUAL) 2 % (0-6); LYMPHOCYTES % (MANUAL) 18 % (13-45); MONOCYTES % (MANUAL) 7 % (3-13); SEGMENTED NEUTROPHILS % (MAN) 69 % (42-78); TOTAL CELLS COUNTED 100
[2018-06-03 13:02] LABS: HYPOCHROMASIA SLIGHT; PLATELET CLUMPS PRESENT; POLYCHROMASIA SLIGHT; TOXIC GRANULATION SLIGHT
[2018-06-03 13:11] LABS: A TYPE INFLUENZA AG NEGATIVE (NEGATIVE); B INFLUENZA AG NEGATIVE (NEGATIVE)
--- NOTE | 2018-06-03 13:18 | RADIOLOGY REPORT (SQ) ---
EXAM DESCRIPTION: CHEST SINGLE VIEW COMPLETED DATE/TIME: 06/03/2018 1:09 pm REASON FOR STUDY: sob COMPARISON: None. EXAM PARAMETERS: NUMBER OF VIEWS: One view. TECHNIQUE: Single frontal radiographic view of the chest acquired. RADIATION DOSE: NA LIMITATIONS: None. FINDINGS: LUNGS AND PLEURA: Probable retrocardiac atelectasis. No other opacities, masses or pneum othorax. No pleural effusion. MEDIASTINUM AND HILAR STRUCTURES: No masses. Contour normal. HEART AND VASCULAR STRUCTURES: Cardiomegaly. BONES: No acute findings. HARDWARE: None in the chest. OTHER: Life vest is applied about the chest. IMPRESSION: Cardiomegaly with probable retrocardiac atelectasis. No definite acute airspace opacity . TECHNICAL DOCUMENTATION: JOB ID: [id number] [employer]- All Rights Reserved Reading location - IP/workstation name: [email or web address]
[2018-06-03] MEDS ORDERED: NITROGLYCERIN 2% OINTMENT 1 GM PACKET TP ONE (15:14)
[2018-06-03] MEDS ORDERED: FUROSEMIDE INJ/PF 100 MG/10 ML SDV IV ONE (15:14)
[2018-06-03] MEDS ORDERED: ZOLPIDEM TARTRATE 5 MG TABLET PO PRN (18:47)
[2018-06-03] MEDS ORDERED: IPRATROPIUM/ALBUTEROL 0.5-2.5 MG/3 ML AMPUL NEB SCH (19:00)
--- NOTE | 2018-06-03 19:00 | PDOC H&P ---
History of Present Illness Admission Date/PCP: 06/03/18 15:28 VIKTOR NGUYEN MD Patient complains of: Shortness of breath. History of Present Illness: TAMAR ESCOBAR is a 52 year old female history of caused by nonischemic cardiomyopathy, hypertension, diabetes, anxiety. She was hospitalized here at [facility] on January 2018 for CHF exacerbation. In December 2017 she was on a vacation in [place] she was feeling anxious and sick and ended up in hospital where she stayed in hospital for 30 days and she was told that she has nonischemic cardiomyopathy and echo at that time showed ejection fraction of less than 30%. Also told that she was having too many PVCs and an ablation was recommended but she refused. This is a she is stating that a week ago she was around some people who had cold and since then she has been feeling generalized achiness and fatigue and also having a nonproductive cough. Yesterday she went to see her PCP and was started on carvedilol and her Lasix was increased and was sent back home. She said today she was having worsening shortness of breath and lower extremity edema and came to ED. She still complaining of nonproductive cough, chills but denies any nausea, vomiting, diarrhea, constipation or any urinary symptoms. Past Medical History Cardiac Medical History: Reports: Congestive Heart Failure - EF 30%, Hypertension Endocrine Medical History: Reports: Diabetes Mellitus Type 2 Social History Smoking Status: Never Smoker Frequency of Alcohol Use: None Hx Recreational Drug Use: No Drugs: None Hx Prescription Drug Abuse: No Family History Family History: Hypertension Parental Family History Reviewed: Yes Children Family History Reviewed: Yes Sibling(s) Family History Reviewed.: Yes Medication/Allergy Home Medications: Alprazolam [Xanax 0.25 mg Tablet] 0.25 mg PO Q8HP PRN 06/03/18 Atorvastatin Calcium [Lipitor 80 mg Tablet] 80 mg PO QHS 06/03/18 Clopidogrel Bisulfate [Plavix 75 mg Tablet] 75 mg PO DAILY 06/03/18 Furosemide [Lasix 40 mg Tablet] 40 mg PO QPM 06/03/18 Furosemide [Lasix 80 mg Tablet] 80 mg PO QAM 06/03/18 Glipizide [Glocotrol 5 Mg Tablet] 5 mg PO BIDACBS 06/03/18 Insulin Glargine,Hum.rec.anlog [Lantus Insulin Inj 300 Unit/3 ml Pen] 15 unit SUBCUT QHS 06/03/18 Metformin HCl [Glucophage 500 mg Tablet] 500 mg PO BIDACBS 06/03/18 Potassium Chloride [Klor-Con 10 Meq Capsule ER] 10 meq PO DAILY 06/03/18 Valsartan [Diovan 40 mg Tablet] 40 mg PO Q12 06/03/18 Allergies/Adverse Reactions: lorazepam [From Ativan] Allergy (Verified 06/03/18 11:23) Review of Systems Review of Systems: Per HPI. Constitutional: PRESENT: as per HPI Physical Exam Vital Signs: Temp Pulse Resp BP Pulse Ox 97.6 F 100 22 H 161/114 H 87 L 06/03/18 11:25 06/03/18 11:25 06/03/18 17:00 06/03/18 16:04 06/03/18 14:00 General appearance: PRESENT: no acute distress, well-developed, well-nourished Neck exam: ABSENT: carotid bruit, JVD, lymphadenopathy, thyromegaly Respiratory exam: PRESENT: clear to auscultation elida. ABSENT: rales, rhonchi, wheezes Cardiovascular exam: PRESENT: RRR. ABSENT: diastolic murmur, rubs, systolic murmur GI/Abdominal exam: PRESENT: normal bowel sounds, soft. ABSENT: distended, guarding, mass, organolmegaly, rebound, tenderness Neurological exam: PRESENT: alert, awake, oriented to person, oriented to place , oriented to time, oriented to situation, CN II-XII grossly intact. ABSENT: motor sensory deficit Results Laboratory Results: 06/03/18 16:00 Troponin I 0.049 Impressions: Chest X-Ray 06/03/18 11:51 IMPRESSION: Cardiomegaly with probable retrocardiac atelectasis. No definite acute airspace opacity. Assessment & Plan - Diagnosis (1) CHF exacerbation Qualifiers: Heart failure type: combined systolic and diastolic Is this a current diagnosis for this admission?: Yes Plan: Likely caused by acute bronchitis. Combined systolic and diastolic heart failure. Caused by nonischemic cardiomyopathy diagnosed in 12/2017 in [place]. 02/18/2018. 2D echo EGA 2024. Severely reduced left ventricular systolic and diastolic dysfunction. 06/03/2018. BNP 17899. Troponin 0 0.043 and 0.049. Third troponin pending IV Lasix, strict in and out, volume restriction, hold beta-blockers, restart once appropriate. Telemetry Continue statins, aspirin, WILLIAMS.. Will order echo. (2) Acute bronchitis Is this a current diagnosis for this admission?: Yes Plan: Start on azithromycin. Sputum and blood culture. We will also check for influenza type a and B. (3) Diabetes mellitus type 2 in nonobese Is this a current diagnosis for this admission?: Yes Plan: Controlled. Long-acting insulin, short acting pre-meal and sliding scale. Accu -Chek. Diabetic diet. Adjust dosage as needed. (4) Hypertension Qualifiers: Hypertension type: essential hypertension Qualified Code(s): I10 - Essential (primary) hypertension Is this a current diagnosis for this admission?: Yes Plan: Uncontrolled. Restart home meds. Hold beta-blockers. Adjust meds as needed.
[2018-06-03] MEDS ORDERED: GUAIFENESIN/D-METHORPHAN (200-20 MG) SYRUP 10 ML PO SCH (19:15)
[2018-06-03] MEDS ORDERED: METOPROLOL TARTRATE PF/INJ 5 MG/5 ML SDV IV ONE (20:45)
[2018-06-03] MEDS ORDERED: INSULIN GLARGINE,HUM.REC.ANLOG 300 UNIT/3 ML INSULN.PEN SUBCUT SCH (22:00)
[2018-06-03] MEDS: AZITHROMYCIN 250 MG TABLET PO SCH (22:29)
[2018-06-03] MEDS: FAMOTIDINE 20 MG TABLET PO SCH (22:29)
[2018-06-03] MEDS: ENOXAPARIN SODIUM INJ 40 MG/0.4 ML DISP.SYRIN SUBCUT SCH (22:30)
[2018-06-03] MEDS: ALPRAZOLAM 0.25 MG TABLET PO PRN (22:30)
[2018-06-03] MEDS: FUROSEMIDE INJ/PF 40 MG/4 ML SDV IV SCH (22:31)
--- NOTE | 2018-06-03 22:38 | EKG REPORT ---
SEVERITY:- ABNORMAL ECG - SINUS RHYTHM LEFT ATRIAL ABNORMALITY LVH WITH SECONDARY REPOLARIZATION ABNORMALITY : Confirmed by: Golden Dumont 03-Jun-2018 22:37:06
[2018-06-03] MEDS ORDERED: INSULIN GLARGINE,HUM.REC.ANLOG 300 UNIT/3 ML INSULN.PEN SUBCUT ONE (23:40)
[2018-06-04] MEDS: HYDRALAZINE HCL INJ/PF 20 MG/1 ML SDV IV PRN ×4 (00:34→23:57)
[2018-06-04] MEDS: ONDANSETRON HCL INJ/PF 4 MG/2 ML SDV IV PRN (01:45)
[2018-06-04] MEDS ORDERED: ARIPIPRAZOLE 5 MG TABLET PO ONE (01:45)
[2018-06-04] MEDS ORDERED: DEXTROSE 50%-WATER SYRINGE 25 GM/50 ML DOSE IV PRN (03:17)
[2018-06-04] MEDS ORDERED: DEXTROSE 50%-WATER SYRINGE 12.5 GM/25 ML DOSE IV PRN (03:17)
[2018-06-04] MEDS ORDERED: DEXTROSE 40% GEL 15 GM TUBE X 2 PO PRN (03:17)
[2018-06-04] MEDS ORDERED: DEXTROSE 40% GEL 15 GM TUBE PO PRN ×3 (03:17→09:45)
[2018-06-04] MEDS ORDERED: GLUCAGON,HUMAN RECOMB 1 MG INJ IM PRN ×2 (03:17→09:45)
[2018-06-04 05:30] LABS: URINE AMPHETAMINES SCREEN NEGATIVE; URINE BARBITURATES SCREEN NEGATIVE; URINE COCAINE SCREEN NEGATIVE; URINE MARIJUANA (THC) SCREEN NEGATIVE; URINE METHADONE SCREEN NEGATIVE; URINE PHENCYCLIDINE SCREEN NEGATIVE
[2018-06-04 05:33] LABS: URINE BENZODIAZEPINES SCREEN UNCONFIRMED POSITIVE
[2018-06-04] MEDS: INSULIN LISPRO 100 UNIT/ML 3 ML VIAL SUBCUT PRN ×3 (07:53→16:37)
[2018-06-04] MEDS: ACETAMINOPHEN 325 MG TABLET PO PRN ×2 (07:56→19:58)
[2018-06-04] MEDS: FAMOTIDINE 20 MG TABLET PO SCH ×2 (09:08→21:45)
[2018-06-04] MEDS: ENOXAPARIN SODIUM INJ 40 MG/0.4 ML DISP.SYRIN SUBCUT SCH (09:08)
[2018-06-04] MEDS: CLOPIDOGREL BISULFATE 75 MG TABLET PO SCH (09:08)
[2018-06-04] MEDS: ALPRAZOLAM 0.25 MG TABLET PO PRN ×2 (09:08→16:37)
[2018-06-04] MEDS: DOCUSATE SODIUM 100 MG/10 ML UDC PO SCH ×2 (09:08→19:00)
[2018-06-04] MEDS: FUROSEMIDE INJ/PF 40 MG/4 ML SDV IV SCH ×2 (09:08→21:45)
[2018-06-04] MEDS ORDERED: DEXTROSE 50%-WATER 25 GM/50 ML DISP.SYRIN IV PRN ×2 (09:45)
[2018-06-04] MEDS ORDERED: VALSARTAN 40 MG TABLET PO SCH (10:00)
[2018-06-04 10:17] LABS: ABSOLUTE EOSINOPHILS # (AUTO) 0.1 10^3/uL (0.0-0.6); ABSOLUTE LYMPHOCYTES (AUTO) 0.8 10^3/uL (0.5-4.7); ABSOLUTE MONOCYTES (AUTO) 0.3 10^3/uL (0.1-1.4); ABSOLUTE NEUT (AUTO) 5.3 10^3/uL (1.7-8.2); BASOPHILS % (AUTO) 0.5 % (0-2); EOSINOPHILS % (AUTO) 0.9 % (0-6); HEMOGLOBIN 13.8 g/dL (12.0-15.5); LYMPHOCYTES % (AUTO) 11.9 % (13-45); MEAN CORPUSCULAR HEMOGLOBIN 27.6 pg (27.0-33.4); MEAN CORPUSCULAR HGB CONC 32.1 g/dL (32.0-36.0); MEAN CORPUSCULAR VOLUME 86 fl (80-97); MONOCYTES % (AUTO) 4.3 % (3-13); PLATELET COUNT 204 10^3/uL (150-450); RED BLOOD COUNT 5.01 10^6/uL (3.72-5.28); RED CELL DISTRIBUTION WIDTH 20.3 % (11.5-14.0); SEGMENTED NEUTROPHILS % (AUTO) 82.4 % (42-78); TOTAL CELLS COUNTED % (AUTO) 100 %; WHITE BLOOD COUNT 6.5 10^3/uL (4.0-10.5)
[2018-06-04 10:43] LABS: ALANINE AMINOTRANSFERASE 35 U/L (9-52); ALKALINE PHOSPHATASE 160 U/L (38-126); ANION GAP 15 (5-19); ASPARTATE AMINO TRANSFERASE 56 U/L (14-36); BILIRUBIN,DIRECT 0.6 mg/dL (0.0-0.4); BLOOD UREA NITROGEN 26 mg/dL (7-20); CALCIUM 9.3 mg/dL (8.4-10.2); CARBON DIOXIDE 34 mmol/L (22-30); CHLORIDE 95 mmol/L (98-107); GLUCOSE 250 mg/dL (75-110); POTASSIUM 4.2 mmol/L (3.6-5.0); SODIUM 143.9 mmol/L (137-145); TOTAL PROTEIN 7.5 g/dL (6.3-8.2)
[2018-06-04] MEDS ORDERED: CARVEDILOL 3.125 MG TABLET PO SCH ×2 (11:00→19:46)
[2018-06-04] MEDS ORDERED: VALSARTAN 80 MG TABLET PO SCH (11:00)
--- NOTE | 2018-06-04 11:12 | PDOC PROGRESS REPORT ---
Subjective Progress Note for:: 06/04/18 Subjective:: 06/04/2018. No acute events overnight. Patient stated that she did not have a good night because of anxiety and also the fact that she received Ambien which may have had some adverse effect on her. Shortness of breath has improved and she is p.o. tolerant and ambulatory having normal bowel and bladder function. Plan is to increase her Ativan every 6 and also stop Ambien. Overnight she has been hypertensive in 160s and 170s otherwise saturating in high 90s on room air. Rapid flu was negative. Reason For Visit: CHF EXACERBATION Physical Exam Vital Signs: Temp Pulse Resp BP Pulse Ox 98.3 F 108 H 18 177/116 H 100 06/04/18 07:30 06/04/18 07:30 06/04/18 07:30 06/04/18 09:05 06/04/18 07:30 Intake & Output 06/03/18 06/04/18 06/05/18 06:59 06:59 06:59 Intake Total 424 Balance 424 Weight 95.8 kg General appearance: PRESENT: mild distress Respiratory exam: PRESENT: clear to auscultation elida. ABSENT: rales, rhonchi, wheezes Cardiovascular exam: PRESENT: RRR. ABSENT: diastolic murmur, rubs, systolic murmur Extremities exam: PRESENT: +1 edema Neurological exam: PRESENT: alert, awake, oriented to person, oriented to place , oriented to time, oriented to situation, CN II-XII grossly intact. ABSENT: motor sensory deficit Psychiatric exam: PRESENT: anxious Results Laboratory Results: 06/04/18 09:50 06/04/18 09:50 06/04/18 06/04/18 09:50 09:50 WBC 6.5 RBC 5.01 Hgb 13.8 Hct 43.0 MCV 86 MCH 27.6 MCHC 32.1 RDW 20.3 H Plt Count 204 Seg Neutrophils % 82.4 H Lymphocytes % 11.9 L Monocytes % 4.3 Eosinophils % 0.9 Basophils % 0.5 Absolute Neutrophils 5.3 Absolute Lymphocytes 0.8 Absolute Monocytes 0.3 Absolute Eosinophils 0.1 Absolute Basophils 0.0 Sodium 143.9 Potassium 4.2 Chloride 95 L Carbon Dioxide 34 H Anion Gap 15 BUN 26 H Creatinine 0.63 Est GFR ( Amer) > 60 Est GFR (Non-Af Amer) > 60 Glucose 250 H Calcium 9.3 Total Bilirubin 1.0 AST 56 H ALT 35 Alkaline Phosphatase 160 H Total Protein 7.5 Albumin 4.0 06/03/18 06/03/18 16:00 19:50 Troponin I 0.049 0.047 Impressions: Chest X-Ray 06/03/18 11:51 IMPRESSION: Cardiomegaly with probable retrocardiac atelectasis. No definite acute airspace opacity. Assessment & Plan - Diagnosis (1) CHF exacerbation Qualifiers: Heart failure type: combined systolic and diastolic Qualified Code(s): I50.43 - Acute on chronic combined systolic (congestive) and diastolic ( congestive) heart failure Is this a current diagnosis for this admission?: Yes Plan: Likely caused by acute bronchitis. Combined systolic and diastolic heart failure. Caused by nonischemic cardiomyopathy diagnosed in 12/2017 in [place]. 02/18/2018. 2D echo fraction of 20%. Severely reduced left ventricular systolic and diastolic dysfunction. 06/03/2018. BNP 43135. Troponin 0.043,0.049,0.047 IV Lasix, strict in and out, volume restriction, hold beta-blockers, restart once appropriate. Telemetry Pending echo. (2) Acute bronchitis Is this a current diagnosis for this admission?: Yes Plan: Azithromycin day 2 of 4. Sputum and blood culture negative so far. Influenza A/B negative. (3) Diabetes mellitus type 2 in nonobese Is this a current diagnosis for this admission?: Yes Plan: Controlled. Long-acting insulin, short acting pre-meal and sliding scale. Accu -Chek. Diabetic diet. Adjust dosage as needed. (4) Hypertension Qualifiers: Hypertension type: essential hypertension Qualified Code(s): I10 - Essential (primary) hypertension Is this a current diagnosis for this admission?: Yes Plan: Uncontrolled. Start on beta-blockers, Lasix, Entresto. As needed hydralazine. (5) Anxiety Is this a current diagnosis for this admission?: Yes Plan: Restart benzos.
[2018-06-04] MEDS: AZITHROMYCIN 250 MG TABLET PO SCH (19:00)
[2018-06-04] MEDS: CARVEDILOL 12.5 MG TABLET PO SCH (21:44)
[2018-06-04] MEDS: INSULIN GLARGINE,HUM.REC.ANLOG 300 UNIT/3 ML INSULN.PEN SUBCUT SCH (21:44)
[2018-06-04] MEDS: SACUBITRIL/VALSARTAN 49 MG/51 MG TABLET PO SCH (21:44)
[2018-06-05] MEDS: ALPRAZOLAM 0.25 MG TABLET PO PRN ×3 (01:53→23:41)
[2018-06-05] MEDS: ACETAMINOPHEN 325 MG TABLET PO PRN (05:04)
[2018-06-05] MEDS: HYDRALAZINE HCL INJ/PF 20 MG/1 ML SDV IV PRN ×2 (05:05→14:11)
[2018-06-05 05:10] LABS: ABSOLUTE EOSINOPHILS # (AUTO) 0.1 10^3/uL (0.0-0.6); ABSOLUTE LYMPHOCYTES (AUTO) 0.9 10^3/uL (0.5-4.7); ABSOLUTE MONOCYTES (AUTO) 0.3 10^3/uL (0.1-1.4); ABSOLUTE NEUT (AUTO) 4.7 10^3/uL (1.7-8.2); BASOPHILS % (AUTO) 0.6 % (0-2); EOSINOPHILS % (AUTO) 0.9 % (0-6); HEMATOCRIT 42.4 % (36.0-47.0); HEMOGLOBIN 13.7 g/dL (12.0-15.5); LYMPHOCYTES % (AUTO) 15.1 % (13-45); MEAN CORPUSCULAR HEMOGLOBIN 27.8 pg (27.0-33.4); MEAN CORPUSCULAR HGB CONC 32.3 g/dL (32.0-36.0); MEAN CORPUSCULAR VOLUME 86 fl (80-97); MONOCYTES % (AUTO) 5.4 % (3-13); PLATELET COUNT 185 10^3/uL (150-450); RED BLOOD COUNT 4.92 10^6/uL (3.72-5.28); RED CELL DISTRIBUTION WIDTH 20.7 % (11.5-14.0); TOTAL CELLS COUNTED % (AUTO) 100 %; WHITE BLOOD COUNT 6.1 10^3/uL (4.0-10.5)
[2018-06-05 07:06] LABS: ALANINE AMINOTRANSFERASE 36 U/L (9-52); ALBUMIN 3.7 g/dL (3.5-5.0); ALKALINE PHOSPHATASE 166 U/L (38-126); ANION GAP 11 (5-19); ASPARTATE AMINO TRANSFERASE 25 U/L (14-36); BILIRUBIN,DIRECT 0.3 mg/dL (0.0-0.4); BILIRUBIN,TOTAL 0.8 mg/dL (0.2-1.3); BLOOD UREA NITROGEN 22 mg/dL (7-20); CALCIUM 9.4 mg/dL (8.4-10.2); CARBON DIOXIDE 34 mmol/L (22-30); CHLORIDE 97 mmol/L (98-107); GLUCOSE 243 mg/dL (75-110); POTASSIUM 3.4 mmol/L (3.6-5.0)
[2018-06-05] MEDS: INSULIN LISPRO 100 UNIT/ML 3 ML VIAL SUBCUT PRN ×4 (08:00→21:28)
[2018-06-05] MEDS ORDERED: POTASSIUM CHLORIDE 20 MEQ/15 ML UDCUP PO ONE (08:30)
[2018-06-05] MEDS: DOCUSATE SODIUM 100 MG/10 ML UDC PO SCH ×2 (09:25→17:20)
[2018-06-05] MEDS: FAMOTIDINE 20 MG TABLET PO SCH ×2 (09:29→21:28)
[2018-06-05] MEDS: CARVEDILOL 12.5 MG TABLET PO SCH ×2 (09:29→21:28)
[2018-06-05] MEDS: FUROSEMIDE INJ/PF 40 MG/4 ML SDV IV SCH ×2 (09:30→21:32)
[2018-06-05] MEDS: ENOXAPARIN SODIUM INJ 40 MG/0.4 ML DISP.SYRIN SUBCUT SCH (09:30)
[2018-06-05] MEDS: CLOPIDOGREL BISULFATE 75 MG TABLET PO SCH (09:30)
[2018-06-05] MEDS: SACUBITRIL/VALSARTAN 49 MG/51 MG TABLET PO SCH ×2 (09:30→21:33)
--- NOTE | 2018-06-05 10:01 | PDOC PROGRESS REPORT ---
Subjective Progress Note for:: 06/05/18 Subjective:: 06/04/2018. No acute events overnight. Patient stated that she did not have a good night because of anxiety and also the fact that she received Ambien which may have had some adverse effect on her. Shortness of breath has improved and she is p.o. tolerant and ambulatory having normal bowel and bladder function. Plan is to increase her Ativan every 6 and also stop Ambien. Overnight she has been hypertensive in 160s and 170s otherwise saturating in high 90s on room air. Rapid flu was negative. 06/05/2018. No acute events overnight. Patient has been less anxious and her blood pressure has been better controlled. On my encounter patient is sitting in her bed in no other acute distress and is stating that she feels much better today. She is suffering from anxiety disorder and when asked about it she states that her son who is 30 years old 3 months ago because of cardiac complication and that makes her sad on top of that she is having her own medical issues. When asked about depression she states she is feeling sad and she has insomnia however she is not having any suicidal homicidal self-harm ideations. She was told about being started on SSRI and she kindly agreed to try it. Plan will be to start her on Prozac and hopefully she can be weaned off of Xanax. She was also counseled about risks of being on Xanax chronically. She is p.o. tolerant, ambulatory, having normal bladder bowel functions. She denies any fever, chills, nausea, vomiting, diarrhea, constipation or any urinary symptoms. Plan is to continue monitoring her for today and hopefully her blood pressure is optimized and will also start her on Prozac and also to follow-up with her PCP to be reevaluated. Her blood pressure has been in 140s-160s, she has been afebrile, pulse rate of less than 100, saturating in high 90s on room air. CBC and CMP looks unremarkable except for a potassium of 3.4 which was replaced. Reason For Visit: CHF EXACERBATION Physical Exam Vital Signs: Temp Pulse Resp BP Pulse Ox 97.7 F 87 20 141/102 H 96 06/05/18 03:34 06/05/18 07:00 06/05/18 03:34 06/05/18 03:34 06/05/18 03:34 Intake & Output 06/04/18 06/05/18 06/06/18 06:59 06:59 06:59 Intake Total 400 Balance 400 Weight 96.7 kg General appearance: PRESENT: no acute distress, well-developed, well-nourished Head exam: PRESENT: atraumatic, normocephalic Respiratory exam: PRESENT: clear to auscultation elida. ABSENT: rales, rhonchi, wheezes Cardiovascular exam: PRESENT: RRR. ABSENT: diastolic murmur, rubs, systolic murmur GI/Abdominal exam: PRESENT: normal bowel sounds, soft. ABSENT: distended, guarding, mass, organolmegaly, rebound, tenderness Neurological exam: PRESENT: alert, awake, oriented to person, oriented to place , oriented to time, oriented to situation, CN II-XII grossly intact. ABSENT: motor sensory deficit Psychiatric exam: PRESENT: anxious, depressed Results Laboratory Results: 06/05/18 04:24 06/05/18 06:17 06/05/18 06/05/18 06/05/18 04:24 04:24 06:17 WBC 6.1 RBC 4.92 Hgb 13.7 Hct 42.4 MCV 86 MCH 27.8 MCHC 32.3 RDW 20.7 H Plt Count 185 Seg Neutrophils % 78.0 Lymphocytes % 15.1 Monocytes % 5.4 Eosinophils % 0.9 Basophils % 0.6 Absolute Neutrophils 4.7 Absolute Lymphocytes 0.9 Absolute Monocytes 0.3 Absolute Eosinophils 0.1 Absolute Basophils 0.0 Sodium Cancelled 142.0 Potassium Cancelled 3.4 L Chloride Cancelled 97 L Carbon Dioxide Cancelled 34 H Anion Gap Cancelled 11 BUN Cancelled 22 H Creatinine Cancelled 0.60 Est GFR ( Amer) Cancelled > 60 Est GFR (Non-Af Amer) Cancelled > 60 Glucose Cancelled 243 H Calcium Cancelled 9.4 Magnesium Cancelled 1.7 Total Bilirubin Cancelled 0.8 AST Cancelled 25 ALT Cancelled 36 Alkaline Phosphatase Cancelled 166 H Total Protein Cancelled 7.0 Albumin Cancelled 3.7 Impressions: Chest X-Ray 06/03/18 11:51 IMPRESSION: Cardiomegaly with probable retrocardiac atelectasis. No definite acute airspace opacity. Assessment & Plan - Diagnosis (1) CHF exacerbation Qualifiers: Heart failure type: combined systolic and diastolic Qualified Code(s): I50.43 - Acute on chronic combined systolic (congestive) and diastolic ( congestive) heart failure Is this a current diagnosis for this admission?: Yes Plan: Likely caused by acute bronchitis. Combined systolic and diastolic heart failure. Caused by nonischemic cardiomyopathy diagnosed in 12/2017 in [place]. 02/18/2018. 2D echo fraction of 20%. Severely reduced left ventricular systolic and diastolic dysfunction. 06/03/2018. BNP 24571. Troponin 0.043,0.049,0.047 IV Lasix, strict in and out, volume restriction, hold beta-blockers, restart once appropriate. Telemetry Pending echo. (2) Acute bronchitis Is this a current diagnosis for this admission?: Yes Plan: Azithromycin day 3 of 4. Sputum and blood culture negative so far. Influenza A/B negative. (3) Diabetes mellitus type 2 in nonobese Is this a current diagnosis for this admission?: Yes Plan: Controlled. Long-acting insulin, short acting pre-meal and sliding scale. Accu -Chek. Diabetic diet. Adjust dosage as needed. (4) Hypertension Qualifiers: Hypertension type: essential hypertension Qualified Code(s): I10 - Essential (primary) hypertension Is this a current diagnosis for this admission?: Yes Plan: Uncontrolled. Start on beta-blockers, Lasix, Entresto. As needed hydralazine. (5) Anxiety Is this a current diagnosis for this admission?: Yes Plan: Restart benzos. (6) Depression Qualifiers: Depression Type: reactive depression Qualified Code(s): F32.9 - Major depressive disorder, single episode, unspecified Is this a current diagnosis for this admission?: Yes Plan: Start Zoloft. Outpatient follow-up. Denies any suicidal, homicidal or self-harm ideation. She says she is sick due to underlying ALS and also the fact that she lost her son to heart attack about 3 months ago.
[2018-06-05] MEDS: IPRATROPIUM/ALBUTEROL 0.5-2.5 MG/3 ML AMPUL NEB PRN (10:03)
[2018-06-05] MEDS ORDERED: CARVEDILOL 12.5 MG TABLET PO ONE ×2 (10:30→14:30)
[2018-06-05] MEDS: SERTRALINE HCL 50 MG TABLET PO SCH (14:12)
[2018-06-05] MEDS: AZITHROMYCIN 250 MG TABLET PO SCH (17:20)
[2018-06-05] MEDS: INSULIN GLARGINE,HUM.REC.ANLOG 300 UNIT/3 ML INSULN.PEN SUBCUT SCH (21:30)
[2018-06-05] MEDS: ONDANSETRON HCL INJ/PF 4 MG/2 ML SDV IV PRN (21:39)
[2018-06-06] MEDS: DOCUSATE SODIUM 100 MG/10 ML UDC PO SCH ×2 (09:23→17:29)
[2018-06-06] MEDS: CARVEDILOL 12.5 MG TABLET PO SCH ×2 (09:24→21:22)
[2018-06-06] MEDS: FUROSEMIDE INJ/PF 40 MG/4 ML SDV IV SCH ×2 (09:25→21:23)
[2018-06-06] MEDS: SACUBITRIL/VALSARTAN 49 MG/51 MG TABLET PO SCH ×2 (09:25→21:23)
[2018-06-06] MEDS: ENOXAPARIN SODIUM INJ 40 MG/0.4 ML DISP.SYRIN SUBCUT SCH (09:26)
[2018-06-06] MEDS: INSULIN LISPRO 100 UNIT/ML 3 ML VIAL SUBCUT PRN ×3 (09:27→21:21)
[2018-06-06] MEDS: CLOPIDOGREL BISULFATE 75 MG TABLET PO SCH (09:28)
[2018-06-06] MEDS: SERTRALINE HCL 50 MG TABLET PO SCH (09:28)
[2018-06-06] MEDS: FAMOTIDINE 20 MG TABLET PO SCH ×2 (09:29→21:23)
[2018-06-06] MEDS: ACETAMINOPHEN 325 MG TABLET PO PRN ×3 (09:29→21:27)
[2018-06-06] MEDS: ALPRAZOLAM 0.25 MG TABLET PO PRN ×2 (09:31→21:27)
--- NOTE | 2018-06-06 13:59 | PDOC PROGRESS REPORT ---
Subjective Progress Note for:: 06/06/18 Subjective:: 06/04/2018. No acute events overnight. Patient stated that she did not have a good night because of anxiety and also the fact that she received Ambien which may have had some adverse effect on her. Shortness of breath has improved and she is p.o. tolerant and ambulatory having normal bowel and bladder function. Plan is to increase her Ativan every 6 and also stop Ambien. Overnight she has been hypertensive in 160s and 170s otherwise saturating in high 90s on room air. Rapid flu was negative. 06/05/2018. No acute events overnight. Patient has been less anxious and her blood pressure has been better controlled. On my encounter patient is sitting in her bed in no other acute distress and is stating that she feels much better today. She is suffering from anxiety disorder and when asked about it she states that her son who is 30 years old 3 months ago because of cardiac complication and that makes her sad on top of that she is having her own medical issues. When asked about depression she states she is feeling sad and she has insomnia however she is not having any suicidal homicidal self-harm ideations. She was told about being started on SSRI and she kindly agreed to try it. Plan will be to start her on Prozac and hopefully she can be weaned off of Xanax. She was also counseled about risks of being on Xanax chronically. She is p.o. tolerant, ambulatory, having normal bladder bowel functions. She denies any fever, chills, nausea, vomiting, diarrhea, constipation or any urinary symptoms. Plan is to continue monitoring her for today and hopefully her blood pressure is optimized and will also start her on Prozac and also to follow-up with her PCP to be reevaluated. Her blood pressure has been in 140s-160s, she has been afebrile, pulse rate of less than 100, saturating in high 90s on room air. CBC and CMP looks unremarkable except for a potassium of 3.4 which was replaced. 06/06/2018. Acute events overnight. Patient is stating that she is feeling much better still mildly anxious. Patient is p.o. tolerant, ambulatory, having normal bowel and bladder function. She denies any fever, chills, nausea, vomiting, diarrhea, shortness of breath or any urinary symptoms. Patient is still not optimized. Will start on amlodipine 5 mg and discharged home tomorrow if blood pressure within normal limits. Reason For Visit: CHF EXACERBATION Physical Exam Vital Signs: Temp Pulse Resp BP Pulse Ox 98.0 F 86 18 137/99 H 99 06/06/18 11:25 06/06/18 11:25 06/06/18 11:25 06/06/18 11:25 06/06/18 11:25 Intake & Output 06/05/18 06/06/18 06/07/18 06:59 06:59 06:59 Intake Total 400 820 577 Balance 400 820 577 Weight 96.7 kg 96.5 kg General appearance: PRESENT: no acute distress, obese, well-developed, well- nourished Respiratory exam: PRESENT: clear to auscultation elida. ABSENT: rales, rhonchi, wheezes Cardiovascular exam: PRESENT: RRR. ABSENT: diastolic murmur, rubs, systolic murmur GI/Abdominal exam: PRESENT: normal bowel sounds, soft. ABSENT: distended, guarding, mass, organolmegaly, rebound, tenderness Extremities exam: PRESENT: full ROM. ABSENT: calf tenderness, clubbing, pedal edema Results Laboratory Results: 06/05/18 04:24 06/05/18 06:17 Impressions: Chest X-Ray 06/03/18 11:51 IMPRESSION: Cardiomegaly with probable retrocardiac atelectasis. No definite acute airspace opacity. Assessment & Plan - Diagnosis (1) CHF exacerbation Qualifiers: Heart failure type: combined systolic and diastolic Qualified Code(s): I50.43 - Acute on chronic combined systolic (congestive) and diastolic ( congestive) heart failure Is this a current diagnosis for this admission?: Yes Plan: Likely caused by acute bronchitis. Combined systolic and diastolic heart failure. Caused by nonischemic cardiomyopathy diagnosed in 12/2017 in [place]. 02/18/2018. 2D echo fraction of 20%. Severely reduced left ventricular systolic and diastolic dysfunction. 06/03/2018. BNP 63342. Troponin 0.043,0.049,0.047 Vitals: SBP 161-123, temperature 98.0, pulse 86-SPO2 99% on room air. Pending echo. (2) Acute bronchitis Is this a current diagnosis for this admission?: Yes Plan: Azithromycin day 4 of 4. Sputum and blood culture negative so far. Influenza A/B negative. (3) Diabetes mellitus type 2 in nonobese Is this a current diagnosis for this admission?: Yes Plan: Controlled. Long-acting insulin, short acting pre-meal and sliding scale. Accu -Chek. Diabetic diet. Adjust dosage as needed. Fasting blood glucose 243, POC glucose 187-235 (4) Hypertension Qualifiers: Hypertension type: essential hypertension Qualified Code(s): I10 - Essential (primary) hypertension Is this a current diagnosis for this admission?: Yes Plan: Uncontrolled. SBP 161-123, temperature 98.0, pulse 86-SPO2 99% on room air. Continue beta-blockers, and Entresto, started on 5 mg of amlodipine. (5) Anxiety Is this a current diagnosis for this admission?: Yes Plan: Restart benzos. (6) Depression Qualifiers: Depression Type: reactive depression Qualified Code(s): F32.9 - Major depressive disorder, single episode, unspecified Is this a current diagnosis for this admission?: Yes Plan: Start Zoloft. Outpatient follow-up. Denies any suicidal, homicidal or self-harm ideation. She says she is sick due to underlying medical condition and also the fact that she lost her son to heart attack about 3 months ago.
[2018-06-06] MEDS ORDERED: AMLODIPINE BESYLATE 5 MG TABLET PO SCH (14:00)
[2018-06-06] MEDS: INSULIN GLARGINE,HUM.REC.ANLOG 300 UNIT/3 ML INSULN.PEN SUBCUT SCH (21:22)
[2018-06-07] MEDS: ALPRAZOLAM 0.25 MG TABLET PO PRN ×2 (04:23→11:58)
[2018-06-07] MEDS: HYDRALAZINE HCL INJ/PF 20 MG/1 ML SDV IV PRN (04:36)
[2018-06-07 05:16] LABS: ABSOLUTE EOSINOPHILS # (AUTO) 0.1 10^3/uL (0.0-0.6); ABSOLUTE MONOCYTES (AUTO) 0.4 10^3/uL (0.1-1.4); ABSOLUTE NEUT (AUTO) 3.3 10^3/uL (1.7-8.2); BASOPHILS % (AUTO) 0.8 % (0-2); EOSINOPHILS % (AUTO) 1.5 % (0-6); HEMATOCRIT 40.9 % (36.0-47.0); MEAN CORPUSCULAR HEMOGLOBIN 27.3 pg (27.0-33.4); MEAN CORPUSCULAR HGB CONC 31.9 g/dL (32.0-36.0); MEAN CORPUSCULAR VOLUME 86 fl (80-97); MONOCYTES % (AUTO) 9.2 % (3-13); PLATELET COUNT 216 10^3/uL (150-450); RED BLOOD COUNT 4.77 10^6/uL (3.72-5.28); RED CELL DISTRIBUTION WIDTH 20.7 % (11.5-14.0); SEGMENTED NEUTROPHILS % (AUTO) 68.5 % (42-78); TOTAL CELLS COUNTED % (AUTO) 100 %; WHITE BLOOD COUNT 4.8 10^3/uL (4.0-10.5)
[2018-06-07 05:33] LABS: ALANINE AMINOTRANSFERASE 38 U/L (9-52); ALBUMIN 3.3 g/dL (3.5-5.0); ALKALINE PHOSPHATASE 159 U/L (38-126); ANION GAP 12 (5-19); ASPARTATE AMINO TRANSFERASE 38 U/L (14-36); BILIRUBIN,DIRECT 0.2 mg/dL (0.0-0.4); BILIRUBIN,TOTAL 0.4 mg/dL (0.2-1.3); BLOOD UREA NITROGEN 24 mg/dL (7-20); CALCIUM 8.8 mg/dL (8.4-10.2); CARBON DIOXIDE 33 mmol/L (22-30); CHLORIDE 97 mmol/L (98-107); GLUCOSE 242 mg/dL (75-110); POTASSIUM 3.7 mmol/L (3.6-5.0); TOTAL PROTEIN 6.5 g/dL (6.3-8.2)
[2018-06-07 05:46] LABS: ANISOCYTOSIS 2+; BURR CELLS SLIGHT
[2018-06-07 05:48] LABS: POLYCHROMASIA 1+
[2018-06-07 05:49] LABS: PLATELET COMMENT ADEQUATE
[2018-06-07] MEDS: ACETAMINOPHEN 325 MG TABLET PO PRN ×2 (07:28→20:04)
[2018-06-07] MEDS ORDERED: AMLODIPINE BESYLATE 5 MG TABLET PO SCH (10:00)
[2018-06-07] MEDS: IPRATROPIUM/ALBUTEROL 0.5-2.5 MG/3 ML AMPUL NEB PRN (10:36)
[2018-06-07] MEDS: DOCUSATE SODIUM 100 MG/10 ML UDC PO SCH ×2 (10:44→17:25)
[2018-06-07] MEDS ORDERED: CHLORTHALIDONE 25 MG TABLET PO SCH (10:45)
[2018-06-07] MEDS: SACUBITRIL/VALSARTAN 49 MG/51 MG TABLET PO SCH ×2 (10:48→22:00)
[2018-06-07] MEDS: FUROSEMIDE INJ/PF 40 MG/4 ML SDV IV SCH ×2 (10:48→22:01)
[2018-06-07] MEDS: CARVEDILOL 12.5 MG TABLET PO SCH ×2 (10:48→22:00)
[2018-06-07] MEDS: ENOXAPARIN SODIUM INJ 40 MG/0.4 ML DISP.SYRIN SUBCUT SCH (10:49)
[2018-06-07] MEDS: SERTRALINE HCL 50 MG TABLET PO SCH (10:49)
[2018-06-07] MEDS: CLOPIDOGREL BISULFATE 75 MG TABLET PO SCH (10:49)
[2018-06-07] MEDS: FAMOTIDINE 20 MG TABLET PO SCH ×2 (10:49→22:00)
[2018-06-07] MEDS: AMLODIPINE BESYLATE 5 MG TABLET PO SCH (11:58)
[2018-06-07] MEDS: CHLORTHALIDONE 25 MG TABLET PO SCH (12:01)
[2018-06-07] MEDS: INSULIN LISPRO 100 UNIT/ML 3 ML VIAL SUBCUT PRN ×3 (12:09→22:13)
--- NOTE | 2018-06-07 14:50 | PDOC PROGRESS REPORT ---
Subjective Progress Note for:: 06/07/18 Subjective:: 06/04/2018. No acute events overnight. Patient stated that she did not have a good night because of anxiety and also the fact that she received Ambien which may have had some adverse effect on her. Shortness of breath has improved and she is p.o. tolerant and ambulatory having normal bowel and bladder function. Plan is to increase her Ativan every 6 and also stop Ambien. Overnight she has been hypertensive in 160s and 170s otherwise saturating in high 90s on room air. Rapid flu was negative. 06/05/2018. No acute events overnight. Patient has been less anxious and her blood pressure has been better controlled. On my encounter patient is sitting in her bed in no other acute distress and is stating that she feels much better today. She is suffering from anxiety disorder and when asked about it she states that her son who is 30 years old 3 months ago because of cardiac complication and that makes her sad on top of that she is having her own medical issues. When asked about depression she states she is feeling sad and she has insomnia however she is not having any suicidal homicidal self-harm ideations. She was told about being started on SSRI and she kindly agreed to try it. Plan will be to start her on Prozac and hopefully she can be weaned off of Xanax. She was also counseled about risks of being on Xanax chronically. She is p.o. tolerant, ambulatory, having normal bladder bowel functions. She denies any fever, chills, nausea, vomiting, diarrhea, constipation or any urinary symptoms. Plan is to continue monitoring her for today and hopefully her blood pressure is optimized and will also start her on Prozac and also to follow-up with her PCP to be reevaluated. Her blood pressure has been in 140s-160s, she has been afebrile, pulse rate of less than 100, saturating in high 90s on room air. CBC and CMP looks unremarkable except for a potassium of 3.4 which was replaced. 06/06/2018. No acute events overnight. Patient is stating that she is feeling much better still mildly anxious. Patient is p.o. tolerant, ambulatory, having normal bowel and bladder function. She denies any fever, chills, nausea, vomiting, diarrhea, shortness of breath or any urinary symptoms. Patient is still not optimized. Will start on amlodipine 5 mg and discharged home tomorrow if blood pressure within normal limits. 06/07/2018. No acute events overnight. Patient's anxiety has been better and she is also been able to sleep better, her blood pressure still uncontrolled. 2D echo was planned but patient refused to take off her LifeVest. She denies any fever, chest pain, shortness of breath, nausea, vomiting, diarrhea, any urinary symptoms. She is p.o. tolerant, ambulatory, normal bowel and bladder movements. Reason For Visit: CHF EXACERBATION Physical Exam Vital Signs: Temp Pulse Resp BP Pulse Ox 98.2 F 103 H 16 175/123 H 100 06/07/18 11:17 06/07/18 11:17 06/07/18 11:17 06/07/18 11:17 06/07/18 11:17 Intake & Output 06/06/18 06/07/18 06/08/18 06:59 06:59 06:59 Intake Total 820 1249 336 Balance 820 1249 336 Weight 96.5 kg 95.6 kg General appearance: PRESENT: no acute distress, well-developed, well-nourished Head exam: PRESENT: atraumatic, normocephalic Respiratory exam: PRESENT: clear to auscultation elida. ABSENT: rales, rhonchi, wheezes Cardiovascular exam: PRESENT: RRR. ABSENT: diastolic murmur, rubs, systolic murmur GI/Abdominal exam: PRESENT: normal bowel sounds, soft. ABSENT: distended, guarding, mass, organolmegaly, rebound, tenderness Extremities exam: PRESENT: full ROM. ABSENT: calf tenderness, clubbing, pedal edema Neurological exam: PRESENT: alert, awake, oriented to person, oriented to place , oriented to time, oriented to situation, CN II-XII grossly intact. ABSENT: motor sensory deficit Psychiatric exam: PRESENT: anxious Results Laboratory Results: 06/07/18 04:43 06/07/18 04:43 06/07/18 06/07/18 04:43 04:43 WBC 4.8 RBC 4.77 Hgb 13.0 Hct 40.9 MCV 86 MCH 27.3 MCHC 31.9 L RDW 20.7 H Plt Count 216 Seg Neutrophils % 68.5 Lymphocytes % 20.0 Monocytes % 9.2 Eosinophils % 1.5 Basophils % 0.8 Absolute Neutrophils 3.3 Absolute Lymphocytes 1.0 Absolute Monocytes 0.4 Absolute Eosinophils 0.1 Absolute Basophils 0.0 Sodium 142.0 Potassium 3.7 Chloride 97 L Carbon Dioxide 33 H Anion Gap 12 BUN 24 H Creatinine 0.73 Est GFR ( Amer) > 60 Est GFR (Non-Af Amer) > 60 Glucose 242 H Calcium 8.8 Magnesium 1.8 Total Bilirubin 0.4 AST 38 H ALT 38 Alkaline Phosphatase 159 H Total Protein 6.5 Albumin 3.3 L Impressions: Chest X-Ray 06/03/18 11:51 IMPRESSION: Cardiomegaly with probable retrocardiac atelectasis. No definite acute airspace opacity. Assessment & Plan - Diagnosis (1) CHF exacerbation Qualifiers: Heart failure type: combined systolic and diastolic Qualified Code(s): I50.43 - Acute on chronic combined systolic (congestive) and diastolic ( congestive) heart failure Is this a current diagnosis for this admission?: Yes Plan: Likely caused by acute bronchitis. Combined systolic and diastolic heart failure. Caused by nonischemic cardiomyopathy diagnosed in 12/2017 in [place]. 02/18/2018. 2D echo fraction of 20%. Severely reduced left ventricular systolic and diastolic dysfunction. 06/03/2018. BNP 32181. Troponin 0.043,0.049,0.047 Vitals: Systolic blood pressure 137-175 temperature 98.2, pulse 88-103, respiratory rate 16-20, SPO2 100% on RA. Refused 2D echo because she does not want to take of her LifeVest. She was encouraged to take her LifeVest off just for 2D echo to be done but she refused. (2) Acute bronchitis Is this a current diagnosis for this admission?: Yes Plan: Azithromycin day 4 of 4. Sputum and blood culture negative so far. Influenza A/B negative. (3) Diabetes mellitus type 2 in nonobese Is this a current diagnosis for this admission?: Yes Plan: Not controlled. Long-acting insulin, short acting pre-meal and sliding scale. Accu-Chek. Diabetic diet. Adjust dosage as needed. Fasting blood glucose 242, POC glucose 187 - 291. Will increase Lantus and pre-meal insulin. (4) Hypertension Qualifiers: Hypertension type: essential hypertension Qualified Code(s): I10 - Essential (primary) hypertension Is this a current diagnosis for this admission?: Yes Plan: Uncontrolled. Vitals: Systolic blood pressure 137-175 temperature 98.2, pulse 88-103, respiratory rate 16-20, SPO2 100% on RA. Continue beta-blockers, Entresto, calcium channel blockers. Added spironolactone and chlorthalidone today. If blood pressure are optimized by tomorrow will DC home to follow-up with PCP. (5) Anxiety Is this a current diagnosis for this admission?: Yes Plan: Restart benzos. (6) Depression Qualifiers: Depression Type: reactive depression Qualified Code(s): F32.9 - Major depressive disorder, single episode, unspecified Is this a current diagnosis for this admission?: Yes Plan: Start Zoloft. Outpatient follow-up. Denies any suicidal, homicidal or self-harm ideation. She says she is sick due to underlying medical condition and also the fact that she lost her son to heart attack about 3 months ago.
[2018-06-07] MEDS ORDERED: GLUCAGON,HUMAN RECOMB 1 MG INJ IM PRN (16:34)
[2018-06-07] MEDS ORDERED: DEXTROSE 40% GEL 15 GM TUBE PO PRN ×2 (16:34)
[2018-06-07] MEDS ORDERED: INSULIN GLARGINE,HUM.REC.ANLOG 300 UNIT/3 ML INSULN.PEN SUBCUT SCH (16:34)
[2018-06-07] MEDS ORDERED: DEXTROSE 50%-WATER 25 GM/50 ML DISP.SYRIN IV PRN ×2 (16:34)
[2018-06-07] MEDS: SPIRONOLACTONE 25 MG TABLET PO SCH (22:00)
[2018-06-08] MEDS: ALPRAZOLAM 0.25 MG TABLET PO PRN (03:39)
[2018-06-08] MEDS: IPRATROPIUM/ALBUTEROL 0.5-2.5 MG/3 ML AMPUL NEB PRN ×2 (03:53→10:13)
[2018-06-08 05:29] LABS: ABSOLUTE EOSINOPHILS # (AUTO) 0.1 10^3/uL (0.0-0.6); ABSOLUTE LYMPHOCYTES (AUTO) 0.8 10^3/uL (0.5-4.7); ABSOLUTE MONOCYTES (AUTO) 0.4 10^3/uL (0.1-1.4); ABSOLUTE NEUT (AUTO) 3.3 10^3/uL (1.7-8.2); BASOPHILS % (AUTO) 0.9 % (0-2); EOSINOPHILS % (AUTO) 1.8 % (0-6); HEMATOCRIT 43.9 % (36.0-47.0); HEMOGLOBIN 14.2 g/dL (12.0-15.5); LYMPHOCYTES % (AUTO) 17.5 % (13-45); MEAN CORPUSCULAR HEMOGLOBIN 27.5 pg (27.0-33.4); MEAN CORPUSCULAR HGB CONC 32.3 g/dL (32.0-36.0); MEAN CORPUSCULAR VOLUME 85 fl (80-97); MONOCYTES % (AUTO) 8.8 % (3-13); PLATELET COUNT 218 10^3/uL (150-450); RED BLOOD COUNT 5.16 10^6/uL (3.72-5.28); RED CELL DISTRIBUTION WIDTH 19.7 % (11.5-14.0); TOTAL CELLS COUNTED % (AUTO) 100 %; WHITE BLOOD COUNT 4.7 10^3/uL (4.0-10.5)
[2018-06-08 05:51] LABS: ALANINE AMINOTRANSFERASE 37 U/L (9-52); ALBUMIN 3.8 g/dL (3.5-5.0); ALKALINE PHOSPHATASE 154 U/L (38-126); ANION GAP 14 (5-19); ASPARTATE AMINO TRANSFERASE 29 U/L (14-36); BILIRUBIN,DIRECT 0.2 mg/dL (0.0-0.4); BILIRUBIN,TOTAL 0.5 mg/dL (0.2-1.3); BLOOD UREA NITROGEN 23 mg/dL (7-20); CALCIUM 9.5 mg/dL (8.4-10.2); CARBON DIOXIDE 31 mmol/L (22-30); CHLORIDE 96 mmol/L (98-107); GLUCOSE 217 mg/dL (75-110); POTASSIUM 4.1 mmol/L (3.6-5.0); SODIUM 140.7 mmol/L (137-145); TOTAL PROTEIN 7.1 g/dL (6.3-8.2)
[2018-06-08] MEDS: INSULIN LISPRO 100 UNIT/ML 3 ML VIAL SUBCUT SCH ×2 (08:07→11:55)
[2018-06-08] MEDS: INSULIN LISPRO 100 UNIT/ML 3 ML VIAL SUBCUT PRN ×2 (08:07→11:55)
[2018-06-08] MEDS: FUROSEMIDE INJ/PF 40 MG/4 ML SDV IV SCH (09:38)
[2018-06-08] MEDS: CHLORTHALIDONE 25 MG TABLET PO SCH (09:38)
[2018-06-08] MEDS: SACUBITRIL/VALSARTAN 49 MG/51 MG TABLET PO SCH (09:38)
[2018-06-08] MEDS: CARVEDILOL 12.5 MG TABLET PO SCH (09:40)
[2018-06-08] MEDS: SPIRONOLACTONE 25 MG TABLET PO SCH (09:40)
[2018-06-08] MEDS: DOCUSATE SODIUM 100 MG/10 ML UDC PO SCH (09:40)
[2018-06-08] MEDS: ENOXAPARIN SODIUM INJ 40 MG/0.4 ML DISP.SYRIN SUBCUT SCH (09:40)
[2018-06-08] MEDS: FAMOTIDINE 20 MG TABLET PO SCH (09:41)
[2018-06-08] MEDS: CLOPIDOGREL BISULFATE 75 MG TABLET PO SCH (09:41)
[2018-06-08] MEDS: SERTRALINE HCL 50 MG TABLET PO SCH (09:41)
[2018-06-08] MEDS: AMLODIPINE BESYLATE 5 MG TABLET PO SCH (09:41)
[2018-06-08 14:30] VITALS: BP 177/116
--- NOTE | 2018-06-08 17:45 | PDOC DISCHARGE SUMMARY ---
General - Admit/Disc Date/PCP Admission Date/Primary Care Provider: 06/04/18 16:48 VIKTOR NGUYEN MD Discharge Date: 06/08/18 - Discharge Diagnosis (1) Acute on chronic systolic (congestive) heart failure Is this a current diagnosis for this admission?: Yes Summary: Responded well to diuretics. Required multiple blood pressure medications to keep her pressure improved. She will have a life vest on (2) Hypertension Is this a current diagnosis for this admission?: Yes Summary: This was especially difficult to control. She was on a couple of medications at home and she is going home with 5 new medications. - Additional Information Discharge Diet: Cardiac, Diabetic Discharge Activity: Activity As Tolerated, Balance Activity w/Rest Prescriptions: Amlodipine Besylate [Norvasc 5 mg Tablet] 5 mg PO DAILY #30 tablet Carvedilol 25 mg PO BID #60 tablet Chlorthalidone [Hygroton 25 mg Tablet] 25 mg PO DAILY #30 tablet Sacubitril/Valsartan [Entresto 49 mg/51 mg Tablet] 1 tab PO Q12 #60 tablet Spironolactone [Aldactone 25 mg Tablet] 50 mg PO DAILY #60 tablet Home Medications: Alprazolam [Xanax 0.25 mg Tablet] 0.25 mg PO Q8HP PRN 06/03/18 Atorvastatin Calcium [Lipitor 80 mg Tablet] 80 mg PO QHS 06/03/18 Clopidogrel Bisulfate [Plavix 75 mg Tablet] 75 mg PO DAILY 06/03/18 Furosemide [Lasix 40 mg Tablet] 40 mg PO QPM 06/03/18 Furosemide [Lasix 80 mg Tablet] 80 mg PO QAM 06/03/18 Insulin Glargine,Hum.rec.anlog [Lantus Insulin 100 Unit/mL] 15 unit SUBCUT QHS 06/03/18 Metformin HCl [Glucophage 500 mg Tablet] 500 mg PO BIDACBS 06/03/18 Amlodipine Besylate [Norvasc 5 mg Tablet] 5 mg PO DAILY #30 tablet 06/08/18 Carvedilol 25 mg PO BID #60 tablet 06/08/18 Chlorthalidone [Hygroton 25 mg Tablet] 25 mg PO DAILY #30 tablet 06/08/18 Sacubitril/Valsartan [Entresto 49 mg/51 mg Tablet] 1 tab PO Q12 #60 tablet 06/08 Spironolactone [Aldactone 25 mg Tablet] 50 mg PO DAILY #60 tablet 06/08/18 History of Present Illness History of Present Illness: TAMAR ESCOBAR is a 52 year old female history of caused by nonischemic cardiomyopathy, hypertension, diabetes, anxiety. She was hospitalized here at [facility] on January 2018 for CHF exacerbation. In December 2017 she was on a vacation in [place] she was feeling anxious and sick and ended up in hospital where she stayed in hospital for 30 days and she was told that she has nonischemic cardiomyopathy and echo at that time showed ejection fraction of less than 30%. Also told that she was having too many PVCs and an ablation was recommended but she refused. This is a she is stating that a week ago she was around some people who had cold and since then she has been feeling generalized achiness and fatigue and also having a nonproductive cough. Yesterday she went to see her PCP and was started on carvedilol and her Lasix was increased and was sent back home. She said today she was having worsening shortness of breath and lower extremity edema and came to ED. She still complaining of nonproductive cough, chills but denies any nausea, vomiting, diarrhea, constipation or any urinary symptoms. Hospital Course Hospital Course: She responded well to diuretics. She required a substantial amount of adjustment to her blood pressure medication regimen, with her diastolic being particularly difficult to control. We were able to get her systolic in the 120s and her diastolic in the 90s which was a substantial improvement over where she had been. She was feeling pretty good at time of discharge. Labs and examination were reassuring. Physical Exam Vital Signs: Temp Pulse Resp BP Pulse Ox 98.0 F 95 18 177/116 H 97 06/08/18 14:27 06/08/18 14:27 06/08/18 14:27 06/08/18 14:27 06/08/18 14:27 Intake & Output 06/07/18 06/08/18 06/09/18 06:59 06:59 06:59 Intake Total 8539 336 576 Balance 1249 336 576 Weight 95.6 kg 95.5 kg General appearance: PRESENT: no acute distress, well-developed, well-nourished Head exam: PRESENT: atraumatic, normocephalic Respiratory exam: PRESENT: clear to auscultation elida. ABSENT: rales, rhonchi, wheezes Cardiovascular exam: PRESENT: RRR. ABSENT: diastolic murmur, rubs, systolic murmur GI/Abdominal exam: PRESENT: normal bowel sounds, soft. ABSENT: distended, guarding, mass, organolmegaly, rebound, tenderness Extremities exam: PRESENT: full ROM. ABSENT: calf tenderness, clubbing, pedal edema Neurological exam: PRESENT: alert, awake, oriented to person, oriented to place , oriented to time, oriented to situation Results Laboratory Results: 06/08/18 04:40 06/08/18 04:40 06/08/18 06/08/18 04:40 04:40 WBC 4.7 RBC 5.16 Hgb 14.2 Hct 43.9 MCV 85 MCH 27.5 MCHC 32.3 RDW 19.7 H Plt Count 218 Seg Neutrophils % 71.0 Lymphocytes % 17.5 Monocytes % 8.8 Eosinophils % 1.8 Basophils % 0.9 Absolute Neutrophils 3.3 Absolute Lymphocytes 0.8 Absolute Monocytes 0.4 Absolute Eosinophils 0.1 Absolute Basophils 0.0 Sodium 140.7 Potassium 4.1 Chloride 96 L Carbon Dioxide 31 H Anion Gap 14 BUN 23 H Creatinine 0.76 Est GFR ( Amer) > 60 Est GFR (Non-Af Amer) > 60 Glucose 217 H Calcium 9.5 Total Bilirubin 0.5 AST 29 ALT 37 Alkaline Phosphatase 154 H Total Protein 7.1 Albumin 3.8 Impressions: Chest X-Ray 06/03/18 11:51 IMPRESSION: Cardiomegaly with probable retrocardiac atelectasis. No definite acute airspace opacity. Qualifiers - * PATIENT BEING DISCHARGED WITH ANY OF THE FOLLOWING DIAGNOSIS: Heart Failure HF Pt being discharged on ACEI for LVEF less than 40%?: No Reason(s) for not prescribing ACEI:: Not indicated - Been discharged on Entresto which has an ARB HF Pt being discharged on ARBS for LVEF less than 40%?: Yes HF Pt with Afib discharged with Warfarin?: No Reason(s) for not prescribing Warfarin:: Not indicated HF Pt discharged on evidence-based Beta Chely:: Yes
== END 2018-06-08 15:39 | disposition home or self-care (01) | DRG 293 ==
LOC: ER 11:20 → EH 15:28 → INTOOBSV 15:28 → 4N 21:14 → OBSVTOIN 06-04 16:48
PROVIDERS: ADMIT Hospitalist; ATTEND Hospitalist
PROC: 3E0F73Z Introduction of Anti-inflammatory into Respiratory Tract, Via Natural or Artificial Opening (ICD-10-PCS; principal; 2018-06-04)
DX: I11.0 Hypertensive heart disease with heart failure (principal); I50.43 Acute on chronic combined systolic (congestive) and diastolic (congestive) heart failure; E11.9 Type 2 diabetes mellitus without complications; F41.9 Anxiety disorder, unspecified; I42.8 Other cardiomyopathies; I49.3 Ventricular premature depolarization; J20.9 Acute bronchitis, unspecified; F32.9 Major depressive disorder, single episode, unspecified; Z79.84 Long term (current) use of oral hypoglycemic drugs; Z79.899 Other long term (current) drug therapy; Z79.4 Long term (current) use of insulin; Z88.8 Allergy status to other drugs, medicaments and biological substances; Z82.49 Family history of ischemic heart disease and other diseases of the circulatory system
CPT/HCPCS: 36415; 71045; 80053; 80307; 82550; 82553; 82962; 83735; 83880; 84484; 85025; 87040; 87804; 93005; 93010; 99285; G0378; J0360; J1650; J1815; J1940; J2405; J3490; J7620

== ENCOUNTER → 2019-05-03 | Outpatient (CLI) | payer SELFPAY ==
[2019-05-03 11:45] LABS: ANION GAP 16 (5-19); BLOOD UREA NITROGEN 55 mg/dL (7-20); CALCIUM 10.1 mg/dL (8.4-10.2); CARBON DIOXIDE 22 mmol/L (22-30); CHLORIDE 96 mmol/L (98-107); POTASSIUM 3.8 mmol/L (3.6-5.0)
[2019-05-03 12:01] LABS: GLUCOSE 495 mg/dL (75-110)
== END ==
LOC: OD 10:33
PROVIDERS: ATTEND Internal Medicine Advanced Heart Failure and Transplant Cardiology
DX: I50.9 Heart failure, unspecified (principal)
CPT/HCPCS: 36415; 80048

== ENCOUNTER 2019-05-04 13:12 | Emergency (ER) | payer SELFPAY ==
[2019-05-04 14:03] LABS: ABSOLUTE BASOPHILS # (AUTO) 0.1 10^3/uL (0.0-0.2); ABSOLUTE EOSINOPHILS # (AUTO) 0.1 10^3/uL (0.0-0.6); ABSOLUTE LYMPHOCYTES (AUTO) 1.2 10^3/uL (0.5-4.7); ABSOLUTE MONOCYTES (AUTO) 0.5 10^3/uL (0.1-1.4); ABSOLUTE NEUT (AUTO) 6.9 10^3/uL (1.7-8.2); EOSINOPHILS % (AUTO) 1.5 % (0-6); HEMATOCRIT 30.6 % (36.0-47.0); LYMPHOCYTES % (AUTO) 13.4 % (13-45); MEAN CORPUSCULAR HEMOGLOBIN 26.7 pg (27.0-33.4); MEAN CORPUSCULAR HGB CONC 32.6 g/dL (32.0-36.0); MEAN CORPUSCULAR VOLUME 82 fl (80-97); MONOCYTES % (AUTO) 5.3 % (3-13); PLATELET COUNT 351 10^3/uL (150-450); RED BLOOD COUNT 3.74 10^6/uL (3.72-5.28); RED CELL DISTRIBUTION WIDTH 16.2 % (11.5-14.0); SEGMENTED NEUTROPHILS % (AUTO) 78.8 % (42-78); TOTAL CELLS COUNTED % (AUTO) 100 %; WHITE BLOOD COUNT 8.7 10^3/uL (4.0-10.5)
[2019-05-04 14:31] LABS: ALBUMIN 4.6 g/dL (3.5-5.0); ALKALINE PHOSPHATASE 157 U/L (38-126); ANION GAP 19 (5-19); ASPARTATE AMINO TRANSFERASE 16 U/L (14-36); BILIRUBIN,DIRECT 0.2 mg/dL (0.0-0.4); BILIRUBIN,TOTAL 0.4 mg/dL (0.2-1.3); BLOOD UREA NITROGEN 48 mg/dL (7-20); CALCIUM 10.1 mg/dL (8.4-10.2); CARBON DIOXIDE 24 mmol/L (22-30); CHLORIDE 95 mmol/L (98-107); POTASSIUM 3.8 mmol/L (3.6-5.0); TOTAL PROTEIN 8.6 g/dL (6.3-8.2)
[2019-05-04 14:44] LABS: GLUCOSE 487 mg/dL (75-110)
[2019-05-04 15:46] LABS: APPEARANCE,URINE CLEAR; BILIRUBIN,URINE NEGATIVE (NEGATIVE); COLOR,URINE STRAW; GLUCOSE, URINE >=500 mg/dL (NEGATIVE); KETONES,URINE NEGATIVE (NEGATIVE); LEUKOCYTE ESTERASE,URINE NEGATIVE (NEGATIVE); NITRITE,URINE NEGATIVE (NEGATIVE); PROTEIN,URINE NEGATIVE (NEGATIVE); URINE SPECIFIC GRAVITY 1.009; UROBILINOGEN,URINE NEGATIVE mg/dL (<2.0)
[2019-05-04] MEDS ORDERED: INSULIN REG, HUMAN 100 UNIT/ML 3 ML VIAL (PYX) IV ONE ×2 (15:57→17:41)
[2019-05-04] MEDS ORDERED: METFORMIN HCL 500 MG TABLET PO ONE (19:18)
--- NOTE | 2019-05-04 19:18 | ER Document Report ---
ED Blood Sugar Problem - General Chief Complaint: High Blood Sugar Stated Complaint: BLOOD SUGAR PROBLEM Time Seen by Provider: 05/04/19 14:44 Primary Care Provider: VIKTOR NGUYEN MD [Primary Care Provider] - Follow up tomorrow TRAVEL OUTSIDE OF THE [place] IN LAST 30 DAYS: No - HPI Notes: 53 year old female with history of DM, HTN, CHF with external defribillator to the ER with C/O hyperglycemia. States that her glucometer was reading "high" and she was concerned so she called the medics. States that her sugar has been reading high since yesterday. States that she takes Lantus "as a sliding scale" but typically takes about 50 units at night. States that this morning when her sugar was well into the 400s, she took 50 units of Lantus. When she checked it several hours later and it read high, she called the medics. Denies fevers, chills, chest pain, SOB, NVD, abd pain, urinary complaints. States besides the lantus, she is taking Metformin. Her sugar has not been controlled with this regimen. - Related Data Allergies/Adverse Reactions: lorazepam [From Ativan] Allergy (Verified 05/04/19 15:12) Past Medical History - General Information source: Patient - Social History Smoking Status: Never Smoker Chew tobacco use (# tins/day): No Frequency of alcohol use: None Drug Abuse: None Family History: DM, Hypertension Patient has suicidal ideation: No Patient has homicidal ideation: No - Past Medical History Cardiac Medical History: Reports: Hx Congestive Heart Failure - EF 30%, Hx Hypertension Endocrine Medical History: Reports: Hx Diabetes Mellitus Type 2 Renal/ Medical History: Denies: Hx Peritoneal Dialysis Psychiatric Medical History: Denies: Hx Depression Review of Systems - Review of Systems Constitutional: denies: Chills, Fever EENT: No symptoms reported Cardiovascular: denies: Chest pain, Palpitations, Dyspnea, Syncope, Dizziness, Lightheaded Respiratory: denies: Cough, Short of breath Gastrointestinal: denies: Abdominal pain, Diarrhea, Nausea, Vomiting Genitourinary: Frequency, Other - + increased thirst Female Genitourinary: No symptoms reported Musculoskeletal: No symptoms reported Skin: No symptoms reported Hematologic/Lymphatic: No symptoms reported Neurological/Psychological: No symptoms reported. denies: Numbness, Tingling -: Yes All other systems reviewed and negative Physical Exam - Vital signs Vitals: Resp Pulse Ox 17 99 05/04/19 13:21 05/04/19 13:21 Selected Entries 05/04/19 05/04/19 13:27 19:01 Temperature 97.9 F Heart Rate ( 95 82 Monitors) Respiratory 16 15 Rate Blood Pressure 146/87 H 115/76 Blood Pressure 89 Mean O2 Sat by Pulse 100 100 Oximetry Interpretation: Normal - General General appearance: Appears well, Alert Notes: wearing external defibrillator - HEENT Head: Normocephalic, Atraumatic Eyes: Normal Pupils: PERRL - Respiratory Respiratory status: No respiratory distress Chest status: Nontender Breath sounds: Normal Chest palpation: Normal - Cardiovascular Rhythm: Regular Heart sounds: Normal auscultation Murmur: No - Abdominal Inspection: Morbidly Obese Distension: No distension Bowel sounds: Normal Tenderness: Nontender Organomegaly: No organomegaly - Back Back: Normal, Nontender - Neurological Neuro grossly intact: Yes Cognition: Normal Orientation: AAOx4 Teresa Coma Scale Eye Opening: Spontaneous Teresa Coma Scale Verbal: Oriented [place] Coma Scale Motor: Obeys Commands [place] Coma Scale Total: 15 Speech: Normal Cranial nerves: Normal Cerebellar coordination: Normal Motor strength normal: LUE, RUE, LLE, RLE Additional motor exam normals: Equal certified residential medication aide Sensory: Normal - Psychological Associated symptoms: Normal affect, Normal mood - Skin Skin Temperature: Warm Skin Moisture: Dry Skin Color: Normal Course - Re-evaluation Re-evalutation: IMprovement of hyperglycemia since administration of Regular insulin. Patient is not in DKA. She looks well and feels well. Have encouraged her to call her physician tomorrow without fail and have given endocrinology follow up for further management of her uncontrolled Type 2 DM. She agrees with the plan. Encouraged to return if worse. - Vital Signs Vital signs: Temp Pulse Resp BP Pulse Ox 97.9 F 15 115/76 100 05/04/19 19:01 05/04/19 19:01 05/04/19 19:01 05/04/19 19:01 - Laboratory Result Diagrams: 05/04/19 13:45 05/04/19 13:45 Laboratory results interpreted by me: 05/04/19 05/04/19 05/04/19 13:22 13:45 13:45 Hgb 10.0 L Hct 30.6 L MCH 26.7 L RDW 16.2 H Seg Neutrophils % 78.8 H Chloride 95 L BUN 48 H Creatinine 1.62 H Est GFR ( Amer) 40 L Est GFR (MDRD) Non-Af 33 L Glucose 487 H* POC Glucose 465 H* Alkaline Phosphatase 157 H Total Protein 8.6 H Urine Glucose (UA) 05/04/19 05/04/19 05/04/19 15:15 16:28 17:38 Hgb Hct MCH RDW Seg Neutrophils % Chloride BUN Creatinine Est GFR ( Amer) Est GFR (MDRD) Non-Af Glucose POC Glucose 427 H* 352 H Alkaline Phosphatase Total Protein Urine Glucose (UA) >=500 H 05/04/19 05/04/19 18:26 19:08 Hgb Hct MCH RDW Seg Neutrophils % Chloride BUN Creatinine Est GFR ( Amer) Est GFR (MDRD) Non-Af Glucose POC Glucose 366 H 356 H Alkaline Phosphatase Total Protein Urine Glucose (UA) Discharge - Discharge Clinical Impression: Hyperglycemia, CKD (chronic kidney disease) Condition: Stable Disposition: HOME, SELF-CARE Instructions: Hyperglycemia ([facility]) Additional Instructions: Push noncaloric fluids. Take medicines as prescribed. Continue your metformin. Take your Lantus in the morning. Return if worsening symptoms. Call your physician tomorrow without fail. Referrals: VIKTOR NGUYEN MD [Primary Care Provider] - Follow up tomorrow
[2019-05-04 19:26] VITALS: BP 115/76
== END 2019-05-04 19:34 | disposition home or self-care (01) ==
LOC: ER 13:12
DX: E11.65 Type 2 diabetes mellitus with hyperglycemia (principal); I13.0 Hypertensive heart and chronic kidney disease with heart failure and stage 1 through stage 4 chronic kidney disease, or unspecified chronic kidney disease; I50.9 Heart failure, unspecified; E11.22 Type 2 diabetes mellitus with diabetic chronic kidney disease; N18.9 Chronic kidney disease, unspecified; Z79.4 Long term (current) use of insulin
CPT/HCPCS: 99283; 36415; 82962; 85025; 80053; 81001; J1815